=== PATIENT | male | born 1965 | race Caucasian/White ===

== ENCOUNTER → 2016-08-17 | Outpatient (CLI) | payer BC ==
[~2016-08-17] MED LIST: ASPI-558 PO; CHOL200047 PO; OMEP20CA10 PO; PRAV20TA48 PO
[2016-08-17 14:33] LABS: ALBUMIN/GLOBULIN RATIO 1.4 RATIO (1.1-2.2); ALKALINE PHOSPHATASE 85 U/L (38-126); ALT (SGPT) 39 U/L (21-72); ANION GAP 7 MEQ/L (5-15); AST (SGOT) 43 U/L (17-59); BUN/CREATININE RATIO 15 RATIO (6-26); CALCIUM 9.3 MG/DL (8.4-10.2); CHLORIDE 106 MEQ/L (98-107); CO2 - CARBON DIOXIDE 30 MEQ/L (22-30); CREATININE 1.1 MG/DL (0.8-1.5); GLOMERULAR FILTRATION RATE 70; GLUCOSE 94 MG/DL (75-110); POTASSIUM 4.7 MEQ/L (3.6-5); SODIUM 143 MEQ/L (134-144); TOTAL PROTEIN 6.9 G/DL (6.3-8.2)
== END ==
LOC: LAB 14:08
PROVIDERS: ATTEND Internal Medicine Hematology & Oncology
DX: C18.7 Malignant neoplasm of sigmoid colon (principal); C78.7 Secondary malignant neoplasm of liver and intrahepatic bile duct; E87.5 Hyperkalemia
CPT/HCPCS: 36415; 80053

== ENCOUNTER 2016-09-04 07:19 | Day surgery (SDC) | payer BC ==
[~2016-09-04] VITALS: Ht 190.5 cm; Wt 96.7 kg
[~2016-09-04 07:19] MED LIST changes: +LIDOCAINE 1% (10mg/ml) 2ml SDV INJ ONE; +LR 1,000 ML IV SCH; +MULT-1274 PO
--- OUTSIDE RECORDS SUMMARY | 2016-09-04 07:23 | XMS REPORT | Continuity of Care Document ---
Author Author [facility] Organization [facility] Address Unknown Phone Unavailable Support Name Relationship Address Phone MATT JO MD Caregiver [address] [place] [address] MAUREEN OSORIO MD Caregiver [facility] [address] [place] [phone] JOJO NICHOLAS & JOHNATHAN Next Of Kin [address] [place], [place] [id number] Insurance Providers Payer Name Policy Number Subscriber Name Relationship [facility] [id number] Ruddy Nicholas 16 Self Advance Directives Directive Response Recorded Date/Time Advanced Directives Type None 11/22/13 12:31am Ordered Resuscitation Status Full Code 11/03/13 1:28pm Chief Complaint and Reason for Visit Chief Complaint ROBOTIC SIGMOID COLECTOMY Reason for Visit Carcinoma of sigmoid colon Hypercholesteremia Hypertension 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 Problems Medical Problems Problem Onset Date Status Hypercholesteremia Unknown Active Hypertension Unknown Active Entrapment of left ulnar nerve Unknown Active Median nerve entrapment Unknown Active Surgical Problems Problem Onset Date Recorded Date/Time Status Carcinoma of sigmoid colon Unknown 11/27/2013 11:34am Active Medications Medication Dose Route Sig Days/Qty Instructions Order Date Discontinued Date Status Lisinopril 10 Mg PO TWICE A DAY 11/03/13 Active Pravastatin Sodium 20 Mg PO BEDTIME 11/03/13 Active Aspirin 81 Mg PO DAILY 11/03/13 Active Prednisone 20 Mg PO GIVE WITH BREAKFAST 18 Qty Take 1 tab daily with breakfast starting 11/28/13. 11/27/13 Active Ibuprofen 800 Mg PO THREE TIMES DAILY WITH MEALS 14 Days 11/27/13 Active Social History Social History Problem Response Recorded Date/Time Smoking Status Never smoker 11/22/2013 12:32am Chewing Tobacco Status No 11/21/2013 8:57am Hx Substance Use No 11/21/2013 8:57am Hx Alcohol Use Y 6-PACK ON WEEKENDS 11/21/2013 8:57am Has the pt used tobacco in the last 12 months No 11/22/2013 12:32am Hospital Discharge Instructions Instructions: Care Instructions: Reason for Hospitalization: SIGMOID COLECTOMY I was in the hospital because (patient own words): REMOVE SOME COLON Discharge Diet: Regular diet as tolerated, avoid raw vegetables for 3 weeks Discharge Activity: - No lifting > 15 pounds for 4 weeks. - No driving until moving and reacting like normal. Follow Up Appointments: - Follow-up with Dr. Osorio on 12/08/13 at 11:00 AM for post-op check. Patient Instructions: - May take Tylenol in addition to Ibuprofen. Wound/Incision Care: - May shower. No tub baths or swimming for 2 weeks after surgery. - Leave steri-strips (tape) in place until they fall off. Notify Physician If: - Uncontrolled pain - Fever > 100.5 degrees - Redness around incision - Any concerns New Scripts Called to Pharmacy: PREDNISONE Condition at time of discharge: Good Care Plan Discharge Patient: Goal: Pain is contolled Patient Instructions: see patient instructions Understand discharge plan Patient Instructions: see patient instructions Plan of Care Discharge Date 11/27/13 2:04pm Disposition 01 DISCHARGED HOME, SELF-CARE Instructions/Education Provided Colectomy -- Laparoscopic Surgery Prescriptions See Medications Section Functional Status Query Response Date Recorded Physical Hygiene Self November 27, 2013 12:05pm Disabilities None November 27, 2013 12:05pm Devices Used None November 27, 2013 12:05pm Dressing Self November 27, 2013 12:05pm Ambulation Self November 27, 2013 12:05pm Diet Self November 27, 2013 12:05pm Mental Status Alert November 27, 2013 12:05pm Disabilities None November 27, 2013 12:05pm Devices Used None November 27, 2013 12:05pm Physical Hygiene Self November 27, 2013 12:05pm Dressing Self November 27, 2013 12:05pm Ambulation Self November 27, 2013 12:05pm Diet Self November 27, 2013 12:05pm Allergies, Adverse Reactions, Alerts Allergen Type Severity Reaction Status Last Updated No Known Drug Allergies Allergy Unknown Active 11/03/13 Immunizations Name Given Type Hx Influenza Vaccination Y AT LEAST 5 YRS AGO Historical Hx Pneumococcal Vaccination No Historical Hx Influenza Vaccination Y AT LEAST 5 YRS AGO Historical Vital Signs Acute Vital Signs Vital Response Date/Time Temperature (Fahrenheit) 96.5 deg F (96.8 - 99.1) Temperature (Calculated Celsius) 35.31537 degrees C (36.0 - 37.3) Temperature Source Oral Pulse Rate (adult) 81 bpm (60 - 100) Respiratory Rate 16 breaths/min (10 - 20) O2 Sat by Pulse Oximetry 95 % (90 - 100) Blood Pressure 143/88 mm Hg Blood Pressure Source Automatic Cuff Height 6 ft 4 in Weight 217 lb Body Mass Index 26.0 kg/m^2 Results Test Source Date Result Interp. Ref. Range Comments Alanine Aminotransferase (ALT/SGPT) November 13, 2013 4:59pm 31 U/L N 21-72 Albumin November 13, 2013 4:59pm 4.2 G/DL N 3.5-5.0 Albumin/Globulin Ratio November 13, 2013 4:59pm 1.6 RATIO N 1.1-2.2 Alkaline Phosphatase November 13, 2013 4:59pm 75 U/L N 38-126 Anion Gap November 25, 2013 4:35am 4 MEQ/L L 5-15 Aspartate Amino Transf (AST/SGOT) November 13, 2013 4:59pm 32 U/L N 17-59 BUN/Creatinine Ratio November 25, 2013 4:35am 15 RATIO N 6-26 Band Neutrophils # November 22, 2013 4:30am 1.4 T/MM3 - Band Neutrophils % November 22, 2013 4:30am 11.0 % H 0-6 Basophils # (Auto) November 25, 2013 4:35am 0.0 T/MM3 N 0-0.2 Basophils (%) (Auto) November 25, 2013 4:35am 0.1 % N 0-2 Blood Urea Nitrogen November 25, 2013 4:35am 12.0 MG/DL N 9-20 Calcium Level November 25, 2013 4:35am 8.4 MG/DL N 8.4-10.2 Calculated Osmolality November 25, 2013 4:35am 258 MOSM/KG L 261-280 Carbon Dioxide Level November 25, 2013 4:35am 32 MEQ/L H 22-30 Carcinoembryonic Antigen November 13, 2013 4:59pm 1.63 UG/L N 0-3.0 Chemistry Specimen Hemolysis November 25, 2013 4:35am < 15 0-25 0-25: No Hemolysis.26-70: Slight Hemolysis - can falsely elevate K and Urine Protein. 71-285: Moderate Hemolysis - can falsely elevate K, Troponin I, CA 19-9, PTH, CSF GLucose, and Urine Protein, and can falsely decrease Phenytoin. 286-999: Gross Hemolysis - can falsely elevate K, Troponin I, CA 19-9, PTH, CSF Glucose, and Urine Protine, and can falsely decrease Phenytoin. Recommend specimen recollection. Chloride Level November 25, 2013 4:35am 98 MEQ/L N 98-107 Creatinine November 25, 2013 4:35am 0.8 MG/DL DN 0.8-1.5 Eosinophils # (Auto) November 25, 2013 4:35am 0.1 T/MM3 N 0-0.5 Eosinophils (%) (Auto) November 25, 2013 4:35am 1.6 % N 0-4 Globulin November 13, 2013 4:59pm 2.7 G/DL N 2.4-3.6 Glomerular Filtration Rate Calc November 25, 2013 4:35am 102 - Glucose Level November 25, 2013 4:35am 102 MG/DL N 75-110 Hematocrit November 25, 2013 4:35am 37.9 % L 41-53 Hemoglobin November 25, 2013 4:35am 13.1 GM/DL L 13.5-17.5 Icterus Index November 25, 2013 4:35am < 2 0-7 Immature Granulocyte # (Auto) November 25, 2013 4:35am 0.01 T/MM3 N 0.00- 0.03 Immature Granulocyte % (Auto) November 25, 2013 4:35am 0.1 % N 0.0-0.5 Lab Scanned Report November 13, 2013 7:39pm LAB TEST FORM REQUEST [id number] - Lymphocytes # (Auto) November 25, 2013 4:35am 0.6 T/MM3 L 1-4.8 Lymphocytes # (Manual) November 22, 2013 4:30am 1.4 T/MM3 N 1-4.8 Lymphocytes % (Manual) November 22, 2013 4:30am 11.0 % L 23-45 Lymphocytes (%) (Auto) November 25, 2013 4:35am 8.7 % L 23-45 Mean Corpuscular Hemoglobin November 25, 2013 4:35am 30.0 UUG N 26-34 Mean Corpuscular Hemoglobin Concent November 25, 2013 4:35am 34.6 GM/DL N 31 -37 Mean Corpuscular Volume November 25, 2013 4:35am 86.7 UM3 N 80-100 Mean Platelet Volume November 25, 2013 4:35am 9.4 UM3 N 9.4-12.4 Monocytes # (Auto) November 25, 2013 4:35am 0.5 T/MM3 N 0-0.8 Monocytes # (Manual) November 22, 2013 4:30am 0.4 T/MM3 N 0-0.8 Monocytes % (Manual) November 22, 2013 4:30am 3.0 % N 0-9.0 Monocytes (%) (Auto) November 25, 2013 4:35am 7.3 % N 0-9.0 Neutrophils # (Auto) November 25, 2013 4:35am 5.6 T/MM3 N 1.8-7.7 Neutrophils # (Manual) November 22, 2013 4:30am 9.2 T/MM3 H 1.8-7.7 Neutrophils % (Manual) November 22, 2013 4:30am 75.0 % H 33-66 Neutrophils (%) (Auto) November 25, 2013 4:35am 82.2 % H 33-66 Platelet Count November 25, 2013 4:35am 224 T/MM3 N 130-400 Potassium Level November 25, 2013 4:35am 3.6 MEQ/L N 3.6-5 RDW Standard Deviation November 25, 2013 4:35am 38.3 FL N 36.9-50.2 Red Blood Count November 25, 2013 4:35am 4.37 M/MM3 L 4.50-5.90 Sodium Level November 25, 2013 4:35am 134 MEQ/L N 134-144 Total Bilirubin November 13, 2013 4:59pm 0.50 MG/DL N 0.20-1.30 Total Protein November 13, 2013 4:59pm 6.9 G/DL N 6.3-8.2 Turbidity November 25, 2013 4:35am < 20 0-20 White Blood Count November 25, 2013 4:35am 6.9 T/MM3 N 4.5-11.0 Procedures Procedure Status Date Provider(s) COLONOSCOPY AND BIOPSY completed 11/05/13 MATT JO MD Robot-assisted left colectomy completed 11/21/13 MAUREEN OSORIO MD Flexible sigmoidoscopy completed 11/21/13 MAUREEN OSORIO MD Encounters Encounter Location Date/Time Discharged Inpatient [facility] 11/21/13 8:25am Registered Clinic [facility] 11/14/13 11:34am Registered Clinic [facility] 11/13/13 4:54pm Recent Diagnosis Hypercholesteremia Hypertension 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
--- OUTSIDE RECORDS SUMMARY | 2016-09-04 07:23 | XMS REPORT | Continuity of Care Document ---
Author Author [facility] Organization [facility] Address Unknown Phone Unavailable Care Team Providers Care General Assembler Name Role Phone Anselmo De La Paz Primary Care Physician [phone] Source Comments Some departments are not documenting in the electronic medical record. If you do not see the information that you expected, contact Release of Information in the Health Information Management department at [phone] for further assistance in locating additional records.[facility] Active Allergies and Adverse Reactions No Known Allergies Current Medications Prescription Sig. Disp. Refills Start End Date Status Date aspirin EC 81 mg tablet Take 81 mg by mouth Active daily. cholecalciferol(+) Take 2,000 Units by mouth Active (VITAMIN D3) 2,000 unit daily. tablet meloxicam (MOBIC) 7.5 mg Take 7.5 mg by mouth Active tablet daily. omeprazole DR(+) Take 20 mg by mouth Active (PRILOSEC) 20 mg capsule daily. oxyCODONE (ROXICODONE) 5 Take 1-3 Tabs by mouth 60 Tab 0 09/25/19 Active mg tablet every 3 hours as needed 16 for Pain Earliest Fill Date: 09/25/15 polyethylene glycol 3350 Take 17 g by mouth daily. 238 g 3 09/25/19 Active (GLYCOLAX; MIRALAX) 17 16 gram/dose powder senna/docusate Take 2 Tabs by mouth 09/25/19 Active (SENOKOT-S) 8.6/50 mg twice daily. 16 tablet Active Problems Problem Noted Date S/P cholecystectomy 09/23/2015 Overview: 09/21/15: Cholecystectomy, liver wedge resection x 3 Vitamin D deficiency 09/22/2015 Hyperlipidemia 09/22/2015 Metastatic colorectal cancer (HCC) 09/21/2015 Social History Tobacco Use Types Packs/Day Years Used Date Never Smoker Smokeless Tobacco: Never Used Alcohol Use Drinks/Week oz/Week Comments Yes 2 Cans of 1.2 beer Last Filed Vital Signs Vital Sign Reading Time Taken Blood Pressure 136/86 10/06/2015 10:37 AM CDT Pulse 73 10/06/2015 10:37 AM CDT Temperature 36.6 C (97.8 F) 10/06/2015 10:37 AM CDT Respiratory Rate - - Height 1.905 m (6' 3") 10/06/2015 10:37 AM CDT Weight 100.426 kg (221 lb 6.4 10/06/2015 10:37 AM CDT oz) Body Mass Index 27.67 10/06/2015 10:37 AM CDT Oxygen Saturation 99% 10/06/2015 10:37 AM CDT Plan of Care Health Maintenance Due Date Last Done Comments Hepatitis C Screening 1965 Physical (Comprehensive) 1970 Exam Pertussis Vaccine 1974 Tetanus Vaccine 01/03/1980 Colorectal Cancer 2013 Screening Influenza Vaccine 02/02/2017 Results from Last 3 Months Not on file
--- OUTSIDE RECORDS SUMMARY | 2016-09-04 07:23 | XMS REPORT | Continuity of Care Document ---
Author Author [facility] Organization [facility] Address Unknown Phone Unavailable Support Name Relationship Address Phone MATT JO MD Caregiver [address] [place] [address] Unavailable DAVID NGO Caregiver [address] [place] [address] Unavailable JOJO NICHOLAS & JOHNATHAN Next Of Kin [address] [place], [place] [id number] Insurance Providers Guarantor Ruddy Nicholas Address [address] [place] [address] CP Email DENIED/NO TO PT PORTAL Payer [facility] Policy Number [id number] Subscriber's Name Ruddy Nicholas Relationship 18 Self Group Number [id number] Advance Directives Directive Response Recorded Date/Time Advanced Directives Type None 11/22/13 12:31am Ordered Resuscitation Status Full Code 11/03/13 1:28pm Problems Active Problems Medical Problem Onset Date Status Entrapment of left ulnar nerve Unknown Acute Hypercholesteremia Unknown Acute Hypertension Unknown Acute Median nerve entrapment Unknown Acute Surgical Problem Onset Date Status Carcinoma of sigmoid colon Unknown Acute Medications Current Home Medications Medication Dose Units Route Directions Days Qty Instructions Start Date Aspirin (Aspir 81) 81 Mg Tablet. 81 Mg Oral Daily 11/03/13 Cholecalciferol (Vitamin D3) (Vitamin D3) 2,000 Unit Capsule 1 Cap Oral Daily 07/14/14 Omeprazole 20 Mg Capsule. 20 Mg Oral Before Breakfast Take 1 capsule, by mouth, one time a day (before breakfast). 10/18/15 Pravastatin Sodium 20 Mg Tablet 20 Mg Oral Bedtime 11/03/13 Past Home Medications Medication Directions Ordered Status Ondansetron Hcl (Zofran) 4 Mg Tablet, 1 Tab Oral Every 6 Hours 09/01/15 Discontinued Social History Social History Problem Response Recorded Date/Time Onset Date Status Chewing Tobacco Status No 11/21/2013 8:57am Not Applicable Not Applicable Hx Substance Use No 10/18/2015 8:56am Not Applicable Not Applicable Hx Alcohol Use Y 2-3X WWEK 10/18/2015 8:56am Not Applicable Not Applicable Has the pt used tobacco in the last 12 months No 12/12/2015 10:35am Not Applicable Not Applicable Query Response Start Date Stop Date Smoking Status Never smoker Hospital Discharge Instructions Current inpatient/outpatient. Discharge instructions are currently unavailable. Plan of Care Current inpatient/outpatient. The plan of care is currently unavailable Functional Status No functional status results. Allergies, Adverse Reactions, Alerts Allergen Type Severity Reaction Status Last Updated No Known Drug Allergies Allergy Unknown Active 11/07/15 Immunizations Query Response on File Recorded Date/Time Hx Influenza Vaccination Y MAR 2015 12/12/15 10:35am Hx Pneumococcal Vaccination No 12/12/15 10:35am Hx Influenza Vaccination Y MAR 2015 12/12/15 10:35am Influenza Vaccine Hx MAR 2015 08/24/15 7:10am Vital Signs Acute Vital Signs Vital Response Date/Time Temperature (Fahrenheit) 97.4 deg F (96.8 - 99.1) 05/30/2016 4:00pm Temperature (Calculated Celsius) 36.61127 degrees C (36.0 - 37.3) 05/30/2016 4:00pm Pulse Rate (adult) 71 bpm (60 - 100) 05/30/2016 4:00pm Respiratory Rate 16 breaths/min (10 - 20) 05/30/2016 4:00pm O2 Sat by Pulse Oximetry 96 % (90 - 100) 05/30/2016 4:00pm Oxygen Delivery Method Room Air 05/30/2016 4:00pm Blood Pressure 145/77 mm Hg 05/30/2016 4:00pm Blood Pressure Source Automatic Cuff 05/30/2016 4:00pm Results Laboratory Results Test Name Result Units Flags Reference Collection Date/Time Result Date/ Time Comments White Blood Count 8.3 T/MM3 4.5-11.0 06/01/2016 5:09pm 06/01/2016 5: 17pm Red Blood Count 3.86 M/MM3 L 4.50-5.90 06/01/2016 5:09pm 06/01/2016 5: 17pm Hemoglobin 12.6 GM/DL L 13.5-17.5 06/01/2016 5:09pm 06/01/2016 5:17pm Hematocrit 37.3 % L 41-53 06/01/2016 5:09pm 06/01/2016 5:17pm Mean Corpuscular Volume 96.6 UM3 80-100 06/01/2016 5:09pm 06/01/2016 5: 17pm Mean Corpuscular Hemoglobin 32.6 UUG 26-34 06/01/2016 5:09pm 2015 5:17pm Mean Corpuscular Hemoglobin Concent 33.8 GM/DL 31-37 06/01/2016 5:09pm 06/01/2016 5:17pm RDW Standard Deviation 53.8 FL H 36.9-50.2 06/01/2016 5:09pm 06/01/2016 5:17pm Platelet Count 122 T/MM3 L 130-400 06/01/2016 5:09pm 06/01/2016 5:17pm Mean Platelet Volume 8.7 UM3 L 9.4-12.4 06/01/2016 5:09pm 06/01/2016 5: 17pm Neutrophils (%) (Auto) 71.4 % H 33-66 04/20/2016 7:18am 04/20/2016 7: 37am Lymphocytes (%) (Auto) 14.7 % L 23-45 04/20/2016 7:18am 04/20/2016 7: 37am Monocytes (%) (Auto) 6.0 % 0-9.0 04/20/2016 7:18am 04/20/2016 7:37am Eosinophils (%) (Auto) 0.8 % 0-4 04/20/2016 7:18am 04/20/2016 7:37am Basophils (%) (Auto) 0.6 % 0-2 04/20/2016 7:18am 04/20/2016 7:37am Immature Granulocyte % (Auto) 6.5 % H 0.0-0.5 04/20/2016 7:18am 2015 7:37am Absolute Neutrophils (auto) 9.1 T/MM3 H 1.8-7.7 04/20/2016 7:18am 2015 7:37am Absolute Lymphocytes (auto) 1.9 T/MM3 1-4.8 04/20/2016 7:18am 2015 7:37am Absolute Monocytes (auto) 0.8 T/MM3 0-0.8 04/20/2016 7:18am 04/20/2016 7:37am Absolute Eosinophils (auto) 0.1 T/MM3 0-0.5 04/20/2016 7:18am 2015 7:37am Absolute Basophils (auto) 0.1 T/MM3 0-0.2 04/20/2016 7:18am 04/20/2016 7:37am Absolute Immature Granulocyte (auto 0.83 T/MM3 H 0.00-0.03 04/20/2016 7: 18am 04/20/2016 7:37am Neutrophils % (Manual) 42.0 % 33-66 06/01/2016 5:09pm 06/01/2016 5: 30pm Band Neutrophils % 13.0 % D H 0-6 06/01/2016 5:09pm 06/01/2016 5:30pm Lymphocytes % (Manual) 30.0 % 23-45 06/01/2016 5:09pm 06/01/2016 5: 30pm Monocytes % (Manual) 10.0 % H 0-9.0 06/01/2016 5:09pm 06/01/2016 5:30pm Eosinophils % (Manual) 2.0 % 0-4 06/01/2016 5:09pm 06/01/2016 5:30pm Basophils % (Manual) 1.0 % 0-2 03/10/2016 6:10am 03/10/2016 6:33am Metamyelocytes % 2.0 % H 0-0 06/01/2016 5:09pm 06/01/2016 5:30pm Myelocytes % 1.0 % H 0-0 06/01/2016 5:09pm 06/01/2016 5:30pm Reactive Lymphocytes % 5.0 % H 0-0 05/04/2016 3:14pm 05/04/2016 4:12pm Band Neutrophils # 1.1 T/MM3 06/01/2016 5:09pm 06/01/2016 5:30pm Absolute Neutrophils (Manual) 3.5 T/MM3 1.8-7.7 06/01/2016 5:09pm 06/01 5:30pm Lymphocytes # (Manual) 2.5 T/MM3 1-4.8 06/01/2016 5:09pm 06/01/2016 5: 30pm Monocytes # (Manual) 0.8 T/MM3 0-0.8 06/01/2016 5:09pm 06/01/2016 5: 30pm Eosinophils # (Manual) 0.2 T/MM3 0-0.5 06/01/2016 5:09pm 06/01/2016 5: 30pm Basophils # (Manual) 0.0 T/MM3 0-0.2 03/10/2016 6:10am 03/10/2016 6: 33am Metamyelocytes # 0.2 T/MM3 06/01/2016 5:09pm 06/01/2016 5:30pm Myelocytes # 0.1 T/MM3 06/01/2016 5:09pm 06/01/2016 5:30pm Reactive Lymphocytes # 0.4 T/MM3 H 0-0 05/04/2016 3:14pm 05/04/2016 4: 12pm Hyposegmented Neutrophils 1+ 05/25/2016 5:31pm 05/25/2016 6:27pm Nucleated Red Blood Cells 1 01/12/2016 5:07pm 01/12/2016 5:47pm Red Cell Morphology Comment ABNORMAL 06/01/2016 5:09pm 06/01/2016 5 :30pm Anisocytosis 1+ 06/01/2016 5:09pm 06/01/2016 5:30pm Icterus Index < 2 0-7 06/01/2016 5:09pm 06/01/2016 5:22pm Chemistry Specimen Hemolysis < 15 0-25 06/01/2016 5:09pm 06/01/2016 5 :22pm 0-25: Specimen Exhibited No Hemolysis. Turbidity < 20 0-20 06/01/2016 5:09pm 06/01/2016 5:22pm Sodium Level 143 MEQ/L 134-144 06/01/2016 5:09pm 06/01/2016 5:22pm Potassium Level 4.5 MEQ/L 3.6-5 06/01/2016 5:09pm 06/01/2016 5:22pm Chloride Level 104 MEQ/L 98-107 06/01/2016 5:09pm 06/01/2016 5:22pm Carbon Dioxide Level 31 MEQ/L H 22-30 06/01/2016 5:09pm 06/01/2016 5: 22pm Anion Gap 8 MEQ/L 5-15 06/01/2016 5:09pm 06/01/2016 5:22pm Blood Urea Nitrogen 15.0 MG/DL 9-20 06/01/2016 5:09pm 06/01/2016 5: 22pm Creatinine 0.8 MG/DL 0.8-1.5 06/01/2016 5:0906/01/2016 5:22pm BUN/Creatinine Ratio 19 RATIO 6-26 06/01/2016 5:0906/01/2016 5:22pm Glomerular Filtration Rate Calc 101 06/01/2016 5:06/01/2016 5: 22pm Glucose Level 94 MG/DL 75-110 06/01/2016 5:0906/01/2016 5:22pm Calculated Osmolality 276 MOSM/KG 261-280 06/01/2016 5:06/01/2016 5:22pm Calcium Level 9.5 MG/DL 8.4-10.2 06/01/2016 5:0906/01/2016 5:22pm Total Bilirubin 0.50 MG/DL 0.20-1.30 06/01/2016 5:06/01/2016 5: 22pm Unconjugated Bilirubin 0.40 MG/DL 0.00-1.10 12/27/2015 4:02pm 2015 4:16pm Conjugated Bilirubin 0.00 MG/DL 0.00-0.30 12/27/2015 4:02pm 12/27/2015 4:16pm Alkaline Phosphatase 158 U/L H 38-126 06/01/2016 5:06/01/2016 5: 22pm Total Protein 6.6 G/DL 6.3-8.2 06/01/2016 5:06/01/2016 5:22pm Albumin 3.8 G/DL 3.5-5.0 06/01/2016 5:06/01/2016 5:22pm Globulin 2.8 G/DL 2.4-3.6 06/01/2016 5:06/01/2016 5:22pm Albumin/Globulin Ratio 1.4 RATIO 1.1-2.2 06/01/2016 5:09pm 06/01/2016 5 :22pm Aspartate Amino Transf (AST/SGOT) 40 U/L 17-59 06/01/2016 5:09pm 2015 5:22pm Alanine Aminotransferase (ALT/SGPT) 44 U/L 21-72 06/01/2016 5:09pm 5:22pm Lactate Dehydrogenase 680 U/L H 313-618 06/01/2016 5:09pm 06/01/2016 5: 22pm Magnesium Level 1.8 MG/DL 1.6-2.3 06/01/2016 5:09pm 06/01/2016 5:22pm Carcinoembryonic Antigen 3.64 UG/L H 0-3.0 05/18/2016 5:36pm 05/18/2016 6:23pm Name: RUDDY NICHOLAS Unit #: [id number] : 1965 Sex: M Admit Date: Loc / Svc: FRANCISCO Discharge Date: DIAGNOSTIC IMAGING REPORT Report #: [id number] [facility] LEAH Benítez Indication: ITS.REASON: C18.7 COLON CA; 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 Coronal and sagittal two-dimensional reformats. Contrast: Omnipaque 300 100 mL Findings: Chest: The lungs are clear without definite suspicious pulmonary mass lesion or adenopathy. No definite pleural effusion. The overall heart size is normal. There is moderate degenerative disc disease of the thoracic spine. No definite skeletal metastasis. The thyroid gland is homogeneous. There is a right-sided IJ port in place. Abdomen: There is a persistent but decreased hypodense lesion along the posterior superior lateral margin of the liver that is measuring 1.8 cm on today's exam in maximal diameter. The previously identified lesion on the surface of the liver posteriorly is no longer detectable as a discrete mass, with only a slight liver surface remaining contour deformity. The other lesions where there was resection of the hepatic metastasis have become less conspicuous. There is no definite new hepatic mass identified from prior study. The spleen is homogeneous in enhancement. The pancreas is uniform in contour and homogeneous in enhancement. The adrenal glands are normal. There are some persistent renal cortical cysts that are unchanged. No retroperitoneal or mesenteric adenopathy. Pelvis: There is a anastomosis in the midline of the pelvis that appears patent. There is moderate stool in the rectal vault distal to the anastomosis. The urinary bladder is not distended. The prostate gland is not significantly enlarged. A normal appendix is not identified with certainty. There is no significant distal colonic diverticulosis. No definite bony destructive process. Impression: Resolving postsurgical changes from resection of hepatic metastases with persistent but improved hypodense lesion along the posterior superior lateral right dome of the liver. No definite detectable mass lesion along the posterior inferior right lobe of the liver. No definite new suspicious hepatic lesion. No pulmonary or other metastasis seen. . Procedures Procedure Status Date Provider(s) MRI NECK SPINE W/O & W/DYE Completed 03/10/16 GADAVIST 10ML SDV - Contrast,Gadavist 10ml Completed 03/10/16 CT THORAX W/DYE Completed 05/02/16 CT ABD & PELV W/CONTRAST Completed 05/02/16 647549"INJECTION, HEPARIN SODIUM, (HEPARIN LOCK FLUSH), PER Completed [id number]"INFUSION, NORMAL SALINE SOLUTION , 250 CC" Completed 05/02/16 [id number]"LOW OSMOLAR CONTRAST MATERIAL, 300-399 MG/ML IODINE C Completed Encounters Encounter Location Arrival/Admit Date Discharge/Depart Date Attending Provider Registered [facility] 06/01/16 5:03pm DAVID NGO Discharged [facility] 05/30/16 5:00pm 06/03/16 11:27pm DAVID NGO Registered [facility] 05/02/16 7:04am DAVID NGO [facility] 03/10/16 6:13am DAVID NGO
--- OUTSIDE RECORDS SUMMARY | 2016-09-04 07:23 | XMS REPORT | Continuity of Care Document ---
Author Author [facility] Organization [facility] Address Unknown Phone Unavailable Support Name Relationship Address Phone MATT JO MD Caregiver [address] [place] [address] Unavailable DAVID NGO Caregiver [address] [place] [address] Unavailable OJJO NICHOLAS & JOHNATHAN Next Of Kin [address] [place], [place] [id number] Insurance Providers Guarantor Ruddy Nicholas Address [address] [place] [address] CP Email DENIED 16 Payer [facility] Policy Number [id number] Subscriber's Name Ruddy Nicholas Relationship 18 Self Group Number [id number] Advance Directives Directive Response Recorded Date/Time Advanced [...] Smoking Status Never smoker Hospital Discharge Instructions No hospital discharge instructions. Plan of Care Prescriptions See Medication Section Functional Status No functional status results. Allergies, [...] - 99.1) 05/30/2016 4:00pm Temperature (Calculated Celsius) 36.56940 degrees C (36.0 - 37.3) 05/30/2016 4:00pm [...] Reference Collection Date/Time Result Date/ Time Comments Neutrophils % (Manual) 42.0 % 33-66 06/01/2016 [...] :30pm Anisocytosis 1+ 06/01/2016 5:09pm 06/01/2016 5:30pm Unconjugated Bilirubin 0.40 MG/DL 0.00-1.10 12/27/2015 4:02pm 2015 4:16pm Conjugated Bilirubin 0.00 MG/DL 0.00-0.30 12/27/2015 4:02pm 12/27/2015 4:16pm White Blood Count 3.9 T/MM3 L 4.5-11.0 06/14/2016 9:06/14/2016 9: 28am Red Blood Count 4.42 M/MM3 L 4.50-5.90 06/14/2016 9:06/14/2016 9: 28am Hemoglobin 14.3 GM/DL 13.5-17.5 06/14/2016 9:06/14/2016 9:28am Hematocrit 42.6 % 41-53 06/14/2016 9:06/14/2016 9:28am Mean Corpuscular Volume 96.4 UM3 80-100 06/14/2016 9:06/14/2016 9: 28am Mean Corpuscular Hemoglobin 32.4 UUG 26-34 06/14/2016 9:2016 9:28am Mean Corpuscular Hemoglobin Concent 33.6 GM/DL 31-37 06/14/2016 9:06/14/2016 9:28am RDW Standard Deviation 50.0 FL 36.9-50.2 06/14/2016 9:06/14/2016 9 :28am Platelet Count 291 T/MM3 D 130-400 06/14/2016 9:06/14/2016 9:28am Mean Platelet Volume 8.6 UM3 L 9.4-12.4 06/14/2016 9:06/14/2016 9: 28am Neutrophils (%) (Auto) 60.9 % 33-66 06/14/2016 9:06/14/2016 9: 28am Lymphocytes (%) (Auto) 26.4 % 23-45 06/14/2016 9:06/14/2016 9: 28am Monocytes (%) (Auto) 10.9 % H 0-9.0 06/14/2016 9:06/14/2016 9:28am Eosinophils (%) (Auto) 1.0 % 0-4 06/14/2016 9:06/14/2016 9:28am Basophils (%) (Auto) 0.8 % 0-2 06/14/2016 9:06/14/2016 9:28am Immature Granulocyte % (Auto) 0.0 % 0.0-0.5 06/14/2016 9:2016 9:28am Absolute Neutrophils (auto) 2.4 T/MM3 1.8-7.7 06/14/2016 9:2016 9:28am Absolute Lymphocytes (auto) 1.0 T/MM3 1-4.8 06/14/2016 9:2016 9:28am Absolute Monocytes (auto) 0.4 T/MM3 0-0.8 06/14/2016 9:06/14/2016 9:28am Absolute Eosinophils (auto) 0.0 T/MM3 0-0.5 06/14/2016 9:2016 9:28am Absolute Basophils (auto) 0.0 T/MM3 0-0.2 06/14/2016 9:06/14/2016 9:28am Absolute Immature Granulocyte (auto 0.00 T/MM3 0.00-0.03 06/14/2016 9: 06/14/2016 9:28am Icterus Index < 2 0-7 06/14/2016 9:06/14/2016 9:19am Chemistry Specimen Hemolysis < 15 0-25 06/14/2016 9:06/14/2016 9 :19am 0-25: Specimen Exhibited No Hemolysis. Turbidity < 20 0-20 06/14/2016 9:06/14/2016 9:19am Sodium Level 141 MEQ/L 134-144 06/14/2016 9:06/14/2016 9:19am Potassium Level 5.5 MEQ/L H 3.6-5 06/14/2016 9:06/14/2016 9:19am Chloride Level 104 MEQ/L 98-107 06/14/2016 9:06/14/2016 9:19am Carbon Dioxide Level 29 MEQ/L 22-30 06/14/2016 9:06/14/2016 9: 19am Anion Gap 8 MEQ/L 5-15 06/14/2016 9:06/14/2016 9:19am Blood Urea Nitrogen 13.0 MG/DL 9-20 06/14/2016 9:06/14/2016 9: 19am Creatinine 0.8 MG/DL 0.8-1.5 06/14/2016 9:06/14/2016 9:19am BUN/Creatinine Ratio 16 RATIO 6-26 06/14/2016 9:06/14/2016 9:19am Glomerular Filtration Rate Calc 101 06/14/2016 9:06/14/2016 9: 19am Glucose Level 103 MG/DL 75-110 06/14/2016 9:06/14/2016 9:19am Calculated Osmolality 271 MOSM/KG 261-280 06/14/2016 9:06/14/2016 9:19am Calcium Level 9.4 MG/DL 8.4-10.2 06/14/2016 9:06/14/2016 9:19am Total Bilirubin 0.90 MG/DL 0.20-1.30 06/14/2016 9:06/14/2016 9: 19am Alkaline Phosphatase 87 U/L 38-126 06/14/2016 9:06/14/2016 9:19am Total Protein 7.1 G/DL 6.3-8.2 06/14/2016 9:06/14/2016 9:19am Albumin 4.4 G/DL 3.5-5.0 06/14/2016 9:06/14/2016 9:19am Globulin 2.7 G/DL 2.4-3.6 06/14/2016 9:06/14/2016 9:19am Albumin/Globulin Ratio 1.6 RATIO 1.1-2.2 06/14/2016 9:06/14/2016 9 :19am Aspartate Amino Transf (AST/SGOT) 42 U/L 17-59 06/14/2016 9:2016 9:19am Alanine Aminotransferase (ALT/SGPT) 42 U/L 21-72 06/14/2016 9:04/2017 9:19am Lactate Dehydrogenase 541 U/L 313-618 06/14/2016 9:06am 06/14/2016 9: 19am Magnesium Level 2.2 MG/DL 1.6-2.3 06/14/2016 9:06am 06/14/2016 9:19am Carcinoembryonic Antigen 3.25 UG/L H 0-3.0 06/14/2016 9:06am 06/14/2016 9:50am Procedures Procedure Status Date Provider(s) [id number]"INJECTION, HEPARIN SODIUM, (HEPARIN LOCK FLUSH), PER Completed Ther/proph/diag inj sc/im Completed 12/12/15 TBO-FILGRASTIM 300 MCG INJECTION Completed 12/12/15 Ther/proph/diag inj sc/im Completed 12/12/15 TBO-FILGRASTIM 300 MCG INJECTION Completed 12/12/15 Ther/proph/diag inj sc/im Completed 12/12/15 TBO-FILGRASTIM 300 MCG INJECTION Completed 12/12/15 Ther/proph/diag inj sc/im Completed 12/12/15 TBO-FILGRASTIM 300 MCG INJECTION Completed 12/12/15 Ther/proph/diag inj sc/im Completed 12/12/15 TBO-FILGRASTIM 300 MCG INJECTION Completed 12/12/15 Ther/proph/diag inj sc/im Completed 12/12/15 TBO-FILGRASTIM 300 MCG INJECTION Completed 12/12/15 Ther/proph/diag inj sc/im Completed 12/12/15 TBO-FILGRASTIM 300 MCG INJECTION Completed 12/12/15 TBO-FILGRASTIM 300 MCG INJECTION Completed 12/12/15 Ther/proph/diag inj sc/im Completed 12/12/15 TBO-FILGRASTIM 300 MCG INJECTION Completed 12/12/15 Ther/proph/diag inj sc/im Completed 12/12/15 TBO-FILGRASTIM 300 MCG INJECTION Completed 12/12/15 Ther/proph/diag inj sc/im Completed 12/12/15 TBO-FILGRASTIM 300 MCG INJECTION Completed 12/12/15 Ther/proph/diag inj sc/im Completed 12/12/15 TBO-FILGRASTIM 300 MCG INJECTION Completed 12/12/15 [id number]"INJECTION, HEPARIN SODIUM, (HEPARIN LOCK FLUSH), PER Completed Ther/proph/diag inj sc/im Completed 12/12/15 TBO-FILGRASTIM 300 MCG INJECTION Completed 12/12/15 Ther/proph/diag inj sc/im Completed 12/12/15 TBO-FILGRASTIM 300 MCG INJECTION Completed 12/12/15 Ther/proph/diag inj sc/im Completed 12/12/15 TBO-FILGRASTIM 300 MCG INJECTION Completed 12/12/15 Ther/proph/diag inj sc/im Completed 12/12/15 TBO-FILGRASTIM 300 MCG INJECTION Completed 12/12/15 Ther/proph/diag inj sc/im Completed 12/12/15 TBO-FILGRASTIM 300 MCG INJECTION Completed 12/12/15 Ther/proph/diag inj sc/im Completed 12/12/15 TBO-FILGRASTIM 300 MCG INJECTION Completed 12/12/15 Ther/proph/diag inj sc/im Completed 12/12/15 TBO-FILGRASTIM 300 MCG INJECTION Completed 12/12/15 Ther/proph/diag inj sc/im Completed 12/12/15 TBO-FILGRASTIM 300 MCG INJECTION Completed 12/12/15 Ther/proph/diag inj sc/im Completed 12/12/15 TBO-FILGRASTIM 300 MCG INJECTION Completed 12/12/15 Ther/proph/diag inj sc/im Completed 12/12/15 TBO-FILGRASTIM 300 MCG INJECTION Completed 12/12/15 Ther/proph/diag inj sc/im Completed 12/12/15 TBO-FILGRASTIM 300 MCG INJECTION Completed 12/12/15 Ther/proph/diag inj sc/im Completed 12/12/15 TBO-FILGRASTIM 300 MCG INJECTION Completed 12/12/15 Office/outpatient visit est Completed 12/12/15 [id number]"INJECTION, HEPARIN SODIUM, (HEPARIN LOCK FLUSH), PER Completed Ther/proph/diag inj sc/im Completed 12/12/15 TBO-FILGRASTIM 300 MCG INJECTION Completed 12/12/15 Ther/proph/diag inj sc/im Completed 12/12/15 TBO-FILGRASTIM 300 MCG INJECTION Completed 12/12/15 Ther/proph/diag inj sc/im Completed 12/12/15 TBO-FILGRASTIM 300 MCG INJECTION Completed 12/12/15 Ther/proph/diag inj sc/im Completed 12/12/15 TBO-FILGRASTIM 300 MCG INJECTION Completed 12/12/15 Ther/proph/diag inj sc/im Completed 12/12/15 TBO-FILGRASTIM 300 MCG INJECTION Completed 12/12/15 Ther/proph/diag inj sc/im Completed 12/12/15 TBO-FILGRASTIM 300 MCG INJECTION Completed 12/12/15 Ther/proph/diag inj sc/im Completed 12/12/15 TBO-FILGRASTIM 300 MCG INJECTION Completed 12/12/15 Office/outpatient visit est Completed 12/12/15 [id number]"INJECTION, HEPARIN SODIUM, (HEPARIN LOCK FLUSH), PER Completed Ther/proph/diag inj sc/im Completed 12/12/15 TBO-FILGRASTIM 300 MCG INJECTION Completed 12/12/15 Ther/proph/diag inj sc/im Completed 12/12/15 TBO-FILGRASTIM 300 MCG INJECTION Completed 12/12/15 Ther/proph/diag inj sc/im Completed 12/12/15 TBO-FILGRASTIM 300 MCG INJECTION Completed 12/12/15 Ther/proph/diag inj sc/im Completed 12/12/15 TBO-FILGRASTIM 300 MCG INJECTION Completed 12/12/15 Ther/proph/diag inj sc/im Completed 12/12/15 TBO-FILGRASTIM 300 MCG INJECTION Completed 12/12/15 Ther/proph/diag inj sc/im Completed 12/12/15 TBO-FILGRASTIM 300 MCG INJECTION Completed 12/12/15 [id number]"INJECTION, HEPARIN SODIUM, (HEPARIN LOCK FLUSH), PER Completed Ther/proph/diag inj sc/im Completed 12/12/15 TBO-FILGRASTIM 300 MCG INJECTION Completed 12/12/15 Ther/proph/diag inj sc/im Completed 12/12/15 TBO-FILGRASTIM 300 MCG INJECTION Completed 12/12/15 Ther/proph/diag inj sc/im Completed 12/12/15 TBO-FILGRASTIM 300 MCG INJECTION Completed 12/12/15 Ther/proph/diag inj sc/im Completed 12/12/15 TBO-FILGRASTIM 300 MCG INJECTION Completed 12/12/15 Ther/proph/diag inj sc/im Completed 12/12/15 TBO-FILGRASTIM 300 MCG INJECTION Completed 12/12/15 Ther/proph/diag inj sc/im Completed 12/12/15 TBO-FILGRASTIM 300 MCG INJECTION Completed 12/12/15 Ther/proph/diag inj sc/im Completed 12/12/15 TBO-FILGRASTIM 300 MCG INJECTION Completed 12/12/15 Ther/proph/diag inj sc/im Completed 12/12/15 TBO-FILGRASTIM 300 MCG INJECTION Completed 12/12/15 Ther/proph/diag inj sc/im Completed 12/12/15 TBO-FILGRASTIM 300 MCG INJECTION Completed 12/12/15 [id number]"INJECTION, HEPARIN SODIUM, (HEPARIN LOCK FLUSH), PER Completed Ther/proph/diag inj sc/im Completed 12/12/15 TBO-FILGRASTIM 300 MCG INJECTION Completed 12/12/15 Ther/proph/diag inj sc/im Completed 12/12/15 TBO-FILGRASTIM 300 MCG INJECTION Completed 12/12/15 Ther/proph/diag inj sc/im Completed 12/12/15 TBO-FILGRASTIM 300 MCG INJECTION Completed 12/12/15 Ther/proph/diag inj sc/im Completed 12/12/15 TBO-FILGRASTIM 300 MCG INJECTION Completed 12/12/15 Ther/proph/diag inj sc/im Completed 12/12/15 TBO-FILGRASTIM 300 MCG INJECTION Completed 12/12/15 Ther/proph/diag inj sc/im Completed 12/12/15 TBO-FILGRASTIM 300 MCG INJECTION Completed 12/12/15 Ther/proph/diag inj sc/im Completed 12/12/15 TBO-FILGRASTIM 300 MCG INJECTION Completed 12/12/15 Ther/proph/diag inj sc/im Completed 12/12/15 TBO-FILGRASTIM 300 MCG INJECTION Completed 12/12/15 Ther/proph/diag inj sc/im Completed 12/12/15 TBO-FILGRASTIM 300 MCG INJECTION Completed 12/12/15 [id number]"INJECTION, HEPARIN SODIUM, (HEPARIN LOCK FLUSH), PER Completed Ther/proph/diag inj sc/im Completed 12/12/15 TBO-FILGRASTIM 300 MCG INJECTION Completed 12/12/15 Ther/proph/diag inj sc/im Completed 12/12/15 TBO-FILGRASTIM 300 MCG INJECTION Completed 12/12/15 Ther/proph/diag inj sc/im Completed 12/12/15 TBO-FILGRASTIM 300 MCG INJECTION Completed 12/12/15 Ther/proph/diag inj sc/im Completed 12/12/15 TBO-FILGRASTIM 300 MCG INJECTION Completed 12/12/15 Ther/proph/diag inj sc/im Completed 12/12/15 TBO-FILGRASTIM 300 MCG INJECTION Completed 12/12/15 Ther/proph/diag inj sc/im Completed 12/12/15 TBO-FILGRASTIM 300 MCG INJECTION Completed 12/12/15 Ther/proph/diag inj sc/im Completed 12/12/15 TBO-FILGRASTIM 300 MCG INJECTION Completed 12/12/15 Ther/proph/diag inj sc/im Completed 12/12/15 TBO-FILGRASTIM 300 MCG INJECTION Completed 12/12/15 Ther/proph/diag inj sc/im Completed 12/12/15 TBO-FILGRASTIM 300 MCG INJECTION Completed 12/12/15 [id number]"INJECTION, HEPARIN SODIUM, (HEPARIN LOCK FLUSH), PER Completed Ther/proph/diag inj sc/im Completed 12/12/15 TBO-FILGRASTIM 300 MCG INJECTION Completed 12/12/15 Ther/proph/diag inj sc/im Completed 12/12/15 TBO-FILGRASTIM 300 MCG INJECTION Completed 12/12/15 Ther/proph/diag inj sc/im Completed 12/12/15 TBO-FILGRASTIM 300 MCG INJECTION Completed 12/12/15 TBO-FILGRASTIM 300 MCG INJECTION Completed 12/12/15 Ther/proph/diag inj sc/im Completed 12/12/15 TBO-FILGRASTIM 300 MCG INJECTION Completed 12/12/15 Ther/proph/diag inj sc/im Completed 12/12/15 TBO-FILGRASTIM 300 MCG INJECTION Completed 12/12/15 Ther/proph/diag inj sc/im Completed 12/12/15 TBO-FILGRASTIM 300 MCG INJECTION Completed 12/12/15 Ther/proph/diag inj sc/im Completed 12/12/15 TBO-FILGRASTIM 300 MCG INJECTION Completed 12/12/15 Ther/proph/diag inj sc/im Completed 12/12/15 TBO-FILGRASTIM 300 MCG INJECTION Completed 12/12/15 Ther/proph/diag inj sc/im Completed 12/12/15 TBO-FILGRASTIM 300 MCG INJECTION Completed 12/12/15 Routine venipuncture Completed 12/27/15 Hepatic function panel Completed 12/27/15 Routine venipuncture Completed 12/27/15 Comprehen metabolic panel Completed 12/27/15 Lactate (ld) (ldh) enzyme Completed 12/27/15 Assay of magnesium Completed 12/27/15 Complete cbc w/auto diff wbc Completed 12/27/15 TBO-FILGRASTIM 300 MCG INJECTION Completed 12/27/15 Routine venipuncture Completed 12/27/15 Comprehen metabolic panel Completed 12/27/15 Lactate (ld) (ldh) enzyme Completed 12/27/15 Assay of magnesium Completed 12/27/15 Bl smear w/diff wbc count Completed 12/27/15 Complete cbc automated Completed 12/27/15 TBO-FILGRASTIM 300 MCG INJECTION Completed 12/27/15 TBO-FILGRASTIM 300 MCG INJECTION Completed 12/27/15 TBO-FILGRASTIM 300 MCG INJECTION Completed 12/27/15 TBO-FILGRASTIM 300 MCG INJECTION Completed 12/27/15 Comprehen metabolic panel Completed 12/27/15 Carcinoembryonic antigen Completed 12/27/15 Lactate (ld) (ldh) enzyme Completed 12/27/15 Assay of magnesium Completed 12/27/15 Bl smear w/diff wbc count Completed 12/27/15 Complete cbc automated Completed 12/27/15 Routine venipuncture Completed 12/27/15 Comprehen metabolic panel Completed 12/27/15 Lactate (ld) (ldh) enzyme Completed 12/27/15 Assay of magnesium Completed 12/27/15 Bl smear w/diff wbc count Completed 12/27/15 Complete cbc automated Completed 12/27/15 Routine venipuncture Completed 12/27/15 Comprehen metabolic panel Completed 12/27/15 Carcinoembryonic antigen Completed 12/27/15 Lactate (ld) (ldh) enzyme Completed 12/27/15 Assay of magnesium Completed 12/27/15 Complete cbc w/auto diff wbc Completed 12/27/15 Routine venipuncture Completed 12/27/15 Comprehen metabolic panel Completed 12/27/15 Lactate (ld) (ldh) enzyme Completed 12/27/15 Assay of magnesium Completed 12/27/15 Complete cbc w/auto diff wbc Completed 12/27/15 Routine venipuncture Completed 12/27/15 Comprehen metabolic panel Completed 12/27/15 Lactate (ld) (ldh) enzyme Completed 12/27/15 Assay of magnesium Completed 12/27/15 Complete cbc w/auto diff wbc Completed 12/27/15 Comprehen metabolic panel Completed 12/27/15 Carcinoembryonic antigen Completed 12/27/15 Lactate (ld) (ldh) enzyme Completed 12/27/15 Assay of magnesium Completed 12/27/15 Complete cbc w/auto diff wbc Completed 12/27/15 Routine venipuncture Completed 12/27/15 Comprehen metabolic panel Completed 12/27/15 Carcinoembryonic antigen Completed 12/27/15 Lactate (ld) (ldh) enzyme Completed 12/27/15 Assay of magnesium Completed 12/27/15 Complete cbc w/auto diff wbc Completed 12/27/15 Routine venipuncture Completed 12/27/15 Comprehen metabolic panel Completed 12/27/15 Lactate (ld) (ldh) enzyme Completed 12/27/15 Assay of magnesium Completed 12/27/15 Complete cbc w/auto diff wbc Completed 12/27/15 Routine venipuncture Completed 12/27/15 Comprehen metabolic panel Completed 12/27/15 Lactate (ld) (ldh) enzyme Completed 12/27/15 Assay of magnesium Completed 12/27/15 Complete cbc w/auto diff wbc Completed 12/27/15 Routine venipuncture Completed 12/27/15 Metabolic panel total ca Completed 12/27/15 Complete cbc w/auto diff wbc Completed 12/27/15 Routine venipuncture Completed 12/27/15 Comprehen metabolic panel Completed 12/27/15 Lactate (ld) (ldh) enzyme Completed 12/27/15 Assay of magnesium Completed 12/27/15 Complete cbc w/auto diff wbc Completed 12/27/15 Routine venipuncture Completed 12/27/15 Comprehen metabolic panel Completed 12/27/15 Lactate (ld) (ldh) enzyme Completed 12/27/15 Assay of magnesium Completed 12/27/15 Complete cbc w/auto diff wbc Completed 12/27/15 Routine venipuncture Completed 12/27/15 Complete cbc w/auto diff wbc Completed 12/27/15 Routine venipuncture Completed 12/27/15 Comprehen metabolic panel Completed 12/27/15 Carcinoembryonic antigen Completed 12/27/15 Lactate (ld) (ldh) enzyme Completed 12/27/15 Assay of magnesium Completed 12/27/15 Complete cbc w/auto diff wbc Completed 12/27/15 Routine venipuncture Completed 12/27/15 Comprehen metabolic panel Completed 12/27/15 Lactate (ld) (ldh) enzyme Completed 12/27/15 Assay of magnesium Completed 12/27/15 Complete cbc w/auto diff wbc Completed 12/27/15 Routine venipuncture Completed 12/27/15 Comprehen metabolic panel Completed 12/27/15 Lactate (ld) (ldh) enzyme Completed 12/27/15 Assay of magnesium Completed 12/27/15 Complete cbc w/auto diff wbc Completed 12/27/15 Routine venipuncture Completed 12/27/15 Comprehen metabolic panel Completed 12/27/15 Carcinoembryonic antigen Completed 12/27/15 Lactate (ld) (ldh) enzyme Completed 12/27/15 Assay of magnesium Completed 12/27/15 Complete cbc w/auto diff wbc Completed 12/27/15 Routine venipuncture Completed 12/27/15 Comprehen metabolic panel Completed 12/27/15 Lactate (ld) (ldh) enzyme Completed 12/27/15 Assay of magnesium Completed 12/27/15 Complete cbc w/auto diff wbc Completed 12/27/15 Routine venipuncture Completed 12/27/15 Comprehen metabolic panel Completed 12/27/15 Lactate (ld) (ldh) enzyme Completed 12/27/15 Assay of magnesium Completed 12/27/15 Complete cbc w/auto diff wbc Completed 12/27/15 Ct thorax w/dye Completed 05/02/16 Ct abd & pelv w/contrast Completed 05/02/16 [id number]"INJECTION, HEPARIN SODIUM, (HEPARIN LOCK FLUSH), PER Completed [id number]"INFUSION, NORMAL SALINE SOLUTION , 250 CC" Completed 05/02/16 [id number]"LOW OSMOLAR CONTRAST MATERIAL, 300-399 MG/ML IODINE C Completed Pet image w/ct skull-thigh Completed 06/14/16"FLUORODEOXYGLUCOSE F-18 FDG, DIAGNOSTIC, PER STUDY DO Completed Encounters Encounter Location Arrival/Admit Date Discharge/Depart Date Attending Provider Discharged [facility] 06/14/16 7:15am 07/29/16 11:59pm DAVID NGO [facility] 06/14/16 6:57am DAVID NGO [facility] 05/02/16 7:04am DAVID NGO [facility] 12/27/15 3:47pm 06/03/16 11:53pm DAVID NGO [facility] 12/12/15 10:30am 06/03/16 11: 27pm DAVID NGO
--- OUTSIDE RECORDS SUMMARY | 2016-09-04 07:24 | XMS REPORT | Continuity of Care Document ---
Author Author [facility] Organization [facility] Address Unknown Phone Unavailable Support Name Relationship Address Phone MATT DE LA PAZ MD Caregiver [address] [place] [address] SILVINA MARTÍNEZ MD Caregiver [facility] [address] [place] [address] JOJO NICHOLAS & JOHNATHAN Next Of Kin [address] [place] [address] Insurance Providers Payer Name Policy Number Subscriber Name Relationship Rust [id number] Ruddy Nicholas 16 Self Advance Directives Directive Response Recorded Date/Time Advanced Directives Type None 11/22/13 12:31am Ordered Resuscitation Status Full Code 11/03/13 1:28pm Problems Medical Problems Problem Onset Date Status [...] daily with breakfast starting 11/28/13. 11/27/13 Active Social History Social History Problem Response Recorded Date/Time Smoking Status Never smoker 11/22/2013 12:32am Chewing Tobacco Status No 11/21/2013 8:57am Hx Substance Use No 01/20/2014 2:31pm Hx Alcohol Use Y 2-3X WWEK 01/20/2014 2:31pm Has the pt used tobacco in the last 12 months No 01/20/2014 2:31pm Hospital Discharge Instructions Instructions: Care Instructions: Reason [...] - Redness around incision - Any concerns Condition at time of discharge: Good Care Plan Discharge Patient: Goal: Pain is contolled Patient Instructions: see patient instructions see patient instructions peels excessively, notify your surgeon's office. 3.You may shower with the dressing in place, but do not submerge in water 4.Do not allow water to seep under the dressing, if it should seep under, remove the dressing and notify your surgeon. Notify Physician If: Call your Surgeon if you have: 1.Chest pain, difficulty breathing, fever>100.5 degrees, chills, heart rate >100, confusion, or persistent nausea/vomitting. 2.Severe pain, swelling, redness, or warmth in either of your legs. 3.During office hours, call [phone] 4. After hours, please call [facility] at [phone], and have the finisher operator page your Surgeon IN THE EVENT OF AN EMERGENCY, seek medical care at the nearest Emergency Room Condition at time of discharge: Good Care Plan Discharge Patient: Goal: Understand discharge plan Patient Instructions: see patient instructions see patient instructions Plan of Care Discharge Date 11/27/13 2:04pm Instructions/Education Provided Colectomy -- Laparoscopic Surgery Prescriptions See Medications Section Functional Status Query Response Date Recorded Physical Hygiene Self November 27, 2013 12:05pm Disabilities None November 27, 2013 12:05pm Ambulation Self November 27, 2013 12:05pm Mental Status Alert November 27, 2013 12:05pm Disabilities None November 27, 2013 12:05pm Physical Hygiene Self November 27, 2013 12:05pm Ambulation Self November 27, 2013 12:05pm Allergies, Adverse Reactions, Alerts Allergen Type Severity Reaction Status Last Updated No Known Drug Allergies Allergy Unknown Active 11/03/13 Immunizations Name Given Type Hx Influenza Vaccination Y AT LEAST 5 YRS AGO Historical Hx Pneumococcal Vaccination No Historical Hx Influenza Vaccination Y AT LEAST 5 YRS AGO Historical Vital Signs Acute Vital Signs Vital Response Date/Time Temperature (Fahrenheit) 97.5 deg F (96.8 - 99.1) Temperature (Calculated Celsius) 36.01625 degrees C (36.0 - 37.3) Temperature Source Temporal Pulse Rate (adult) 78 bpm (60 - 100) Respiratory Rate 16 breaths/min (10 - 20) O2 Sat by Pulse Oximetry 98 % (90 - 100) Oxygen Delivery Method Room Air Blood Pressure 133/84 mm Hg Blood Pressure Source Automatic Cuff Height 6 ft 3 in Weight 201 lb Body Mass Index 25.0 kg/m^2 Results Test Source Date Result Interp. Ref. Range Comments Alanine Aminotransferase (ALT/SGPT) December 18, 2013 9:04am 31 U/L N 21-72 Albumin December 18, 2013 9:04am 3.8 G/DL N 3.5-5.0 Albumin/Globulin Ratio December 18, 2013 9:04am 1.4 RATIO N 1.1-2.2 Alkaline Phosphatase December 18, 2013 9:04am 72 U/L N 38-126 Anion Gap December 18, 2013 9:04am 10 MEQ/L N 5-15 Aspartate Amino Transf (AST/SGOT) December 18, 2013 9:04am 24 U/L N 17-59 BUN/Creatinine Ratio December 18, 2013 9:04am 12 RATIO N 6-26 Band Neutrophils # November 22, 2013 4:30am 1.4 T/MM3 - Band Neutrophils % November 22, 2013 4:30am 11.0 % H 0-6 Basophils # (Auto) December 18, 2013 9:04am 0.0 T/MM3 N 0-0.2 Basophils (%) (Auto) December 18, 2013 9:04am 0.8 % N 0-2 Blood Urea Nitrogen December 18, 2013 9:04am 12.0 MG/DL N 9-20 Calcium Level December 18, 2013 9:04am 9.1 MG/DL N 8.4-10.2 Calculated Osmolality December 18, 2013 9:04am 275 MOSM/KG N 261-280 Carbon Dioxide Level December 18, 2013 9:04am 29 MEQ/L N 22-30 Carcinoembryonic Antigen December 18, 2013 9:04am 1.61 UG/L N 0-3.0 Chloride Level December 18, 2013 9:04am 104 MEQ/L N 98-107 Cholesterol Level January 05, 2014 7:26am 182 MG/DL N 132-199 Cholesterol/HDL Ratio January 05, 2014 7:26am 3.0 RATIO N 0-5.0 Creatinine December 18, 2013 9:04am 1.0 MG/DL N 0.8-1.5 Eosinophils # (Auto) December 18, 2013 9:04am 0.2 T/MM3 N 0-0.5 Eosinophils (%) (Auto) December 18, 2013 9:04am 3.8 % N 0-4 Globulin December 18, 2013 9:04am 2.7 G/DL N 2.4-3.6 Glucose Level December 18, 2013 9:04am 106 MG/DL N 75-110 Hematocrit December 18, 2013 9:04am 44.8 % N 41-53 Hemoglobin December 18, 2013 9:04am 15.2 GM/DL N 13.5-17.5 LDL Cholesterol, Calculated January 05, 2014 7:26am 97.2 N 66-159 Lactate Dehydrogenase December 18, 2013 9:04am 422 U/L N 313-618 Lymphocytes # (Auto) December 18, 2013 9:04am 1.0 T/MM3 N 1-4.8 Lymphocytes # (Manual) November 22, 2013 4:30am 1.4 T/MM3 N 1-4.8 Lymphocytes % (Manual) November 22, 2013 4:30am 11.0 % L 23-45 Lymphocytes (%) (Auto) December 18, 2013 9:04am 19.1 % L 23-45 Mean Corpuscular Hemoglobin December 18, 2013 9:04am 29.9 UUG N 26-34 Mean Corpuscular Hemoglobin Concent December 18, 2013 9:04am 33.9 GM/DL N 31 -37 Mean Corpuscular Volume December 18, 2013 9:04am 88.2 UM3 N 80-100 Mean Platelet Volume December 18, 2013 9:04am 8.7 UM3 L 9.4-12.4 Monocytes # (Auto) December 18, 2013 9:04am 0.5 T/MM3 N 0-0.8 Monocytes # (Manual) November 22, 2013 4:30am 0.4 T/MM3 N 0-0.8 Monocytes % (Manual) November 22, 2013 4:30am 3.0 % N 0-9.0 Monocytes (%) (Auto) December 18, 2013 9:04am 9.6 % H 0-9.0 Neutrophils # (Auto) December 18, 2013 9:04am 3.5 T/MM3 N 1.8-7.7 Neutrophils # (Manual) November 22, 2013 4:30am 9.2 T/MM3 H 1.8-7.7 Neutrophils % (Manual) November 22, 2013 4:30am 75.0 % H 33-66 Neutrophils (%) (Auto) December 18, 2013 9:04am 66.3 % H 33-66 Platelet Count December 18, 2013 9:04am 267 T/MM3 N 130-400 Potassium Level December 18, 2013 9:04am 4.1 MEQ/L N 3.6-5 RDW Standard Deviation December 18, 2013 9:04am 43.4 FL N 36.9-50.2 Red Blood Count December 18, 2013 9:04am 5.08 M/MM3 N 4.50-5.90 Sodium Level December 18, 2013 9:04am 143 MEQ/L N 134-144 Total Bilirubin December 18, 2013 9:04am 0.90 MG/DL N 0.20-1.30 Total Protein December 18, 2013 9:04am 6.5 G/DL N 6.3-8.2 Triglycerides Level January 05, 2014 7:26am 124 MG/DL N 40-160 VLDL Cholesterol January 05, 2014 7:26am 24.8 MG/DL N 0-28 White Blood Count December 18, 2013 9:04am 5.2 T/MM3 N 4.5-11.0 Chemistry Specimen Hemolysis December 18, 2013 9:04am < 15 0-25 0-25: No Hemolysis.26-70: Slight [...] can falsely decrease Phenytoin. Recommend specimen recollection. Lab Scanned Report January 05, 2014 9:58am LAB TEST FORM REQUEST [id number] - HDL Cholesterol Direct January 05, 2014 7:26am 60 MG/DL N 40-60 Turbidity December 18, 2013 9:04am < 20 0-20 Glomerular Filtration Rate Calc December 18, 2013 9:04am 79 - Immature Granulocyte # (Auto) December 18, 2013 9:04am 0.02 T/MM3 N 0.00- 0.03 Immature Granulocyte % (Auto) December 18, 2013 9:04am 0.4 % N 0.0-0.5 Icterus Index December 18, 2013 9:04am < 2 0-7 Name: RUDDY NICHOLAS Unit #: [id number] : 1965 Sex: M Loc / Svc: MED DOS: Signed Report #: [id number] DIAGNOSTIC IMAGING REPORT TYPE OF EXAM: US ARTERIAL EXTREMITY UPPER LT Dictated By: SILVINA DE LA PAZ MD INDICATION: ITS.REASON: Left arm numbness post-op US ARTERIAL EXTREMITY UPPER LT: Comparison: None Findings: Grayscale and color Doppler duplex interrogation of the left upper extremity arterial system reveals normal waveforms and velocities in the common carotid, subclavian , axillary, brachial , radial, and ulnar arteries. No evidence of arterial occlusion or hemodynamically significant stenosis. Of note some of the images are mislabeled as the right upper extremity. Impression: No evidence of hemodynamically significant arterial stenosis or occlusion. . Procedures Procedure Status Date Provider(s) COLONOSCOPY AND BIOPSY completed 11/05/13 MATT DE LA PAZ MD LAPARO PARTIAL COLECTOMY completed 11/21/13 MAUREEN OSORIO MD DIAGNOSTIC SIGMOIDOSCOPY completed 11/21/13 MAUREEN OSORIO MD Shoulder arthroscopy completed 01/21/14 SILVINA MARTÍNEZ MD Encounters Encounter Location Date/Time Registered Clinic [facility] 01/05/14 7:18am Registered Clinic [facility] 12/18/13 9:02am Discharged Inpatient [facility] 11/21/13 8:25am Registered Clinic [facility] 11/14/13 11:34am Registered Clinic [facility] 11/13/13 4:54pm
--- OUTSIDE RECORDS SUMMARY | 2016-09-04 07:24 | XMS REPORT | CCD ---
Author Author MARCIO SMALL Organization Unknown Address [address], [place] [id number] Phone 0 Care Team Providers Care Community Mental Health Worker Name Role Phone DAVID NGO Attending Physician [phone] Vital Signs Unknown or Not Available. Allergies Unknown or Not Available. Procedures Unknown or Not Available. History of Immunizations Unknown or Not Available. Problems Unknown or Not Available. Results Unknown or Not Available. Active Medications Unknown or Not Available. Medications Administered During Visit Unknown or Not Available. Encounters Encounter Diagnosis Diagnosis Code Start Date Encounter for attention to other artificial openings Z438 11/21/2015 Social History Smoking Status Code Start Date End Date Unknown if ever smoked [id number] Patient Decision Aids Unknown or Not Available. Discharge Instructions You were admitted to [facility] on 11/21/2015 09:55 with a principal diagnosis of Encounter for attention to other artificial openings You were discharged from [facility] on 11/21/2015 10:05 Should you have any questions prior to discharge, please contact a member of your healthcare team. If you have left the hospital and have any questions, please contact your primary care physician. Chief Complaint and Reason For Visit Chief Complaint Date of Onset PUMP REMOVAL/PORT FLUSH Function Status Unknown or Not Available. Plan of Care Unknown or Not Available. Referral/Transition of Care Unknown or Not Available.
--- OUTSIDE RECORDS SUMMARY | 2016-09-04 07:24 | XMS REPORT | Continuity of Care Document ---
Author Author [facility] Organization [facility] Address Unknown Phone Unavailable Support Name Relationship Address Phone FRANKLYN HARP MD Caregiver [address] [place] [address] [place] [address] Unavailable MATT DE LA PAZ MD Caregiver [address] [facility] [address] [place] [address] Unavailable JOJO NICHOLAS & JOHNATHAN Next Of Kin [address] [place], [place] [id number] Insurance Providers Guarantor Ruddy Nicholas Address [address] [facility] [place] [address] CP Email DENIED/NO TO PT PORTAL Payer [facility] Policy Number [id number] Subscriber's Name Ruddy Nicholas Relationship 16 Self Group Number [id number] Advance Directives Directive Response Recorded Date/Time Advanced Directives Type None 11/22/13 12:31am Ordered Resuscitation Status Full Code 11/03/13 1:28pm Resuscitation Documents on File No 10/19/15 8:57am DPOA for Healthcare Only No 10/19/15 8:57am Problems Active Problems Medical Problem Onset Date [...] Applicable Not Applicable Hx Substance Use No 09/03/2015 7:28am Not Applicable Not Applicable Hx Alcohol Use Y 2-3X WWEK 09/03/2015 7:28am Not Applicable Not Applicable Has the pt used tobacco in the last 12 months No 09/03/2015 7:28am Not Applicable Not Applicable Query Response Start Date Stop Date Smoking Status Never smoker Hospital Discharge Instructions No hospital discharge instructions. Plan of Care Discharge Date 10/19/15 1:41pm Prescriptions See Medication Section Functional Status Query Response Date Recorded Ability to complete ADL's impeded by No change October 19, 2015 8:57am Allergies, Adverse Reactions, Alerts Allergen Type Severity Reaction Status Last Updated No Known Drug Allergies Allergy Unknown Active 11/03/13 Immunizations Query Response on File Recorded Date/Time Hx Influenza Vaccination Y MAR 2015 09/03/15 7:28am Hx Pneumococcal Vaccination No 09/03/15 7:28am Hx Influenza Vaccination Y MAR 2015 09/03/15 7:28am Influenza Vaccine Hx MAR 2015 08/24/15 7:10am Vital Signs Acute Vital Signs Vital Response Date/Time Temperature (Fahrenheit) 97.0 deg F (96.8 - 99.1) 10/19/2015 12:23pm Temperature (Calculated Celsius) 36.82893 degrees C (36.0 - 37.3) 10/19/2015 12:23pm Temperature Source Temporal 10/19/2015 12:23pm Pulse Rate (adult) 68 bpm (60 - 100) 10/19/2015 1:40pm Respiratory Rate 16 breaths/min (10 - 20) 10/19/2015 1:40pm O2 Sat by Pulse Oximetry 96 % (90 - 100) 10/19/2015 1:40pm Oxygen Delivery Method Room Air 08/24/2015 11:09am Oxygen Delivery Method Room Air 10/19/2015 1:40pm Oxygen Flow Rate 8.00 L/min 10/19/2015 12:23pm Blood Pressure 143/86 mm Hg 10/19/2015 1:40pm Blood Pressure Source Automatic Cuff 10/19/2015 1:40pm Height (Feet) 6 feet 10/19/2015 8:21am Height (Inches) 3.00 inches 10/19/2015 8:21am Weight (Kilograms) 100.800 kg 10/19/2015 8:21am Body Mass Index (BMI) 27.8 10/19/2015 8:21am Results Laboratory Results Test Name Result Units Flags Reference Collection Date/Time Result Date/ Time Comments Prothromb Time International Ratio 1.07 0.81-1.09 08/31/2015 5:49pm 08/31/2015 5:59pm THERAPUTIC RANGE=2.00-3.00 FOR ANTI-THROMBOSIS THERAPUTIC RANGE=2.50-3.50 FOR IMPLANTED VALVE White Blood Count 5.9 T/MM3 4.5-11.0 10/13/2015 11:10/13/2015 11: 17am Red Blood Count 5.24 M/MM3 4.50-5.90 10/13/2015 11:10/13/2015 11: 17am Hemoglobin 15.2 GM/DL 13.5-17.5 10/13/2015 11:10/13/2015 11:17am Hematocrit 45.9 % 41-53 10/13/2015 11:10/13/2015 11:17am Mean Corpuscular Volume 87.6 UM3 80-100 10/13/2015 11:10/13/2015 11:17am Mean Corpuscular Hemoglobin 29.0 UUG 26-34 10/13/2015 11:2015 11:17am Mean Corpuscular Hemoglobin Concent 33.1 GM/DL 31-37 10/13/2015 11:10/13/2015 11:17am RDW Standard Deviation 39.9 FL 36.9-50.2 10/13/2015 11:10/13/2015 11:17am Platelet Count 393 T/MM3 130-400 10/13/2015 11:10/13/2015 11:17am Mean Platelet Volume 8.6 UM3 L 9.4-12.4 10/13/2015 11:10/13/2015 11 :17am Neutrophils (%) (Auto) 62.8 % 33-66 10/13/2015 11:10/13/2015 11: 17am Lymphocytes (%) (Auto) 26.3 % 23-45 10/13/2015 11:10/13/2015 11: 17am Monocytes (%) (Auto) 5.9 % 0-9.0 10/13/2015 11:10/13/2015 11:17am Eosinophils (%) (Auto) 3.7 % 0-4 10/13/2015 11:10/13/2015 11:17am Basophils (%) (Auto) 1.0 % 0-2 10/13/2015 11:10/13/2015 11:17am Immature Granulocyte % (Auto) 0.3 % 0.0-0.5 10/13/2015 11:2015 11:17am Absolute Neutrophils (auto) 3.7 T/MM3 1.8-7.7 10/13/2015 11:2015 11:17am Absolute Lymphocytes (auto) 1.6 T/MM3 1-4.8 10/13/2015 11:2015 11:17am Absolute Monocytes (auto) 0.4 T/MM3 0-0.8 10/13/2015 11:2015 11:17am Absolute Eosinophils (auto) 0.2 T/MM3 0-0.5 10/13/2015 11:2015 11:17am Absolute Basophils (auto) 0.1 T/MM3 0-0.2 10/13/2015 11:2015 11:17am Absolute Immature Granulocyte (auto 0.02 T/MM3 0.00-0.03 10/13/2015 11: 10/13/2015 11:17am Icterus Index < 2 0-7 10/13/2015 11:10/13/2015 11:29am Chemistry Specimen Hemolysis < 15 0-25 10/13/2015 11:10/13/2015 11:29am 0-25: Specimen Exhibited No Hemolysis. Turbidity < 20 0-20 10/13/2015 11:10/13/2015 11:29am Sodium Level 140 MEQ/L 134-144 10/13/2015 11:10/13/2015 11:29am Potassium Level 4.4 MEQ/L 3.6-5 10/13/2015 11:10/13/2015 11:29am Chloride Level 104 MEQ/L 98-107 10/13/2015 11:10/13/2015 11:29am Carbon Dioxide Level 28 MEQ/L 22-30 10/13/2015 11:10/13/2015 11: 29am Anion Gap 8 MEQ/L 5-15 10/13/2015 11:10/13/2015 11:29am Blood Urea Nitrogen 12.0 MG/DL 9-20 10/13/2015 11:10/13/2015 11: 29am Creatinine 1.1 MG/DL 0.8-1.5 10/13/2015 11:10/13/2015 11:29am BUN/Creatinine Ratio 11 RATIO 6-26 10/13/2015 11:10/13/2015 11: 29am Glomerular Filtration Rate Calc 70 10/13/2015 11:10/13/2015 11 :29am Glucose Level 99 MG/DL 75-110 10/13/2015 11:10/13/2015 11:29am Calculated Osmolality 269 MOSM/KG 261-280 10/13/2015 11:2015 11:29am Calcium Level 9.2 MG/DL 8.4-10.2 10/13/2015 11:10/13/2015 11:29am Total Bilirubin 0.50 MG/DL 0.20-1.30 10/13/2015 11:10/13/2015 11: 29am Alkaline Phosphatase 98 U/L 38-126 10/13/2015 11:10/13/2015 11: 29am Total Protein 6.8 G/DL 6.3-8.2 10/13/2015 11:10/13/2015 11:29am Albumin 3.9 G/DL 3.5-5.0 10/13/2015 11:10/13/2015 11:29am Globulin 2.9 G/DL 2.4-3.6 10/13/2015 11:10/13/2015 11:29am Albumin/Globulin Ratio 1.3 RATIO 1.1-2.2 10/13/2015 11:10/13/2015 11:29am Aspartate Amino Transf (AST/SGOT) 49 U/L 17-59 10/13/2015 11:10/12 11:29am Alanine Aminotransferase (ALT/SGPT) 53 U/L 21-72 10/13/2015 11:11am 04/2016 11:29am Lactate Dehydrogenase 504 U/L 313-618 10/13/2015 11:11am 10/13/2015 11: 29am Magnesium Level 2.0 MG/DL 1.6-2.3 10/13/2015 11:11am 10/13/2015 11: 29am Carcinoembryonic Antigen 1.67 UG/L D 0-3.0 10/13/2015 11:11am 10/13/2015 12:04pm Name: RUDDY NICHOLAS Unit #: [id number] : 1965 Sex: M Admit Date: Loc / Svc: NSC Discharge Date: DIAGNOSTIC IMAGING REPORT Report #: [id number] [facility] LEAH Benítez Indication: ITS.REASON: PORT-A-CATH INSERTION PROCEDURE: PORTACATH W FLUORO W 1V CXR: Encounter: Initial Comparison: None FINDINGS: Right internal jugular approach central venous port catheter in place with the tip projecting over the mid to lower SVC. The lungs are clear. There is no abnormal airspace opacity, pleural effusion or pneumothorax identified. The heart size, pulmonary vasculature and mediastinum are within normal limits. No significant skeletal abnormality is seen. IMPRESSION: New right internal jugular port catheter as above. . Procedures Procedure Status Date Provider(s) ROUTINE VENIPUNCTURE Completed 07/29/15 COMPREHEN METABOLIC PANEL Completed 07/29/15 CARCINOEMBRYONIC ANTIGEN Completed 07/29/15 LACTATE (LD) (LDH) ENZYME Completed 07/29/15 COMPLETE CBC W/AUTO DIFF WBC Completed 07/29/15 CT THORAX W/DYE Completed 08/12/15 CT ABD & PELV W/CONTRAST Completed 08/12/15412602"INFUSION, NORMAL SALINE SOLUTION , 250 CC" Completed 08/12/15145998"LOW OSMOLAR CONTRAST MATERIAL, 300-399 MG/ML IODINE C Completed MRI JNT OF LWR EXTRE W/O DYE Completed 08/04/15 PET IMAGE W/CT SKULL-THIGH Completed 08/25/15"FLUORODEOXYGLUCOSE F-18 FDG, DIAGNOSTIC, PER STUDY DO Completed NEEDLE BIOPSY OF LIVER Completed 08/24/15 ECHO GUIDE FOR BIOPSY Completed 08/24/15 AUTOMATED PLATELET COUNT Completed 08/24/15 PROTHROMBIN TIME Completed 08/24/15467099"INJECTION, MIDAZOLAM HYDROCHLORIDE, PER 1 MG" Completed 08/24/15"INJECTION, FENTANYL CITRATE, 0.1 MG" Completed 08/24/15"RINGERS LACTATE INFUSION, UP TO 1000 CC" Completed 08/24/15 KNEE ARTHROSCOPY/SURGERY Completed 09/01/15 SILVINA MARTÍNEZ MD ROUTINE VENIPUNCTURE Completed 09/01/15 ROUTINE VENIPUNCTURE Completed 09/01/15 TRANSFERASE (AST) (SGOT) Completed 09/01/15 ALANINE AMINO (ALT) (SGPT) Completed 09/01/15 COMPLETE CBC W/AUTO DIFF WBC Completed 09/01/15 PROTHROMBIN TIME Completed 09/01/15 [id number] SURGICAL KNEE ARTHROSCOPY IN A DIFFERENT COMPART Completed SILVINA MARTÍNEZ MD [id number]"INJECTION, DEXAMETHASONE SODIUM PHOSPHATE, 1MG" Completed 09/01/15"INJECTION, MEPERIDINE HYDROCHLORIDE, PER 100 MG" Completed 09/01/15"INJECTION, ONDANSETRON HYDROCHLORIDE, PER 1 MG" Completed 09/01/15"INJECTION, METOCLOPRAMIDE HCL, UP TO 10 MG" Completed 09/01/15"INJECTION, FENTANYL CITRATE, 0.1 MG" Completed 09/01/15969884"RINGERS LACTATE INFUSION, UP TO 1000 CC" Completed 09/01/15"RINGERS LACTATE INFUSION, UP TO 1000 CC" Completed 09/01/15 EGD BIOPSY SINGLE/MULTIPLE Completed 09/03/15 FRANKLYN HARP MD PROPOFOL INJ 500 MG/50ML Completed 09/03/15"RINGERS LACTATE INFUSION, UP TO 1000 CC" Completed 09/03/15 ROUTINE VENIPUNCTURE Completed 10/13/15 COMPREHEN METABOLIC PANEL Completed 10/13/15 CARCINOEMBRYONIC ANTIGEN Completed 10/13/15 LACTATE (LD) (LDH) ENZYME Completed 10/13/15 ASSAY OF MAGNESIUM Completed 10/13/15 COMPLETE CBC W/AUTO DIFF WBC Completed 10/13/15 Insertion of vascular catheter Completed 10/19/15 FRANKLYN HARP MD Encounters Encounter Location Arrival/Admit Date [facility]/19/15 1: 41pm FRANKLYN HARP MD Registered [facility] 10/18/15 8:11am DAVID NGO Registered [facility] 10/13/15 10:55am [facility] 7[facility]03[facility] 09/03/15 10 :35am [facility] 7:50am 09/01/15 11 :25am SILVINA MARTÍNEZ MD Registered [facility] 08[facility]25[facility]15 8:35[facility] 08/24/15 11:35am SILVINA DE LA PAZ MD Registered [facility] 08/12/15 8:04am DAVID NGO Registered [facility] 08/04/15 7:19am SILVINA MARTÍNEZ MD Registered [facility] 07/29/15 8:24am DAVID NGO
--- OUTSIDE RECORDS SUMMARY | 2016-09-04 07:24 | XMS REPORT | Continuity of Care Document ---
Author Author [facility] Address Unknown Phone Unavailable Allergies Medications Problems Date Dx Coded Attending Type Code Diagnosis Diagnosed By 08/25/2015 Radha Jaeger Ot 715.31 08/25/2015 Radha Jaeger Ot 719.41 08/25/2015 Radha Jaeger Ot 726.10 08/25/2015 Radha Jaeger Ot 840.3 08/25/2015 Radha Jaeger Ot 840.4 08/25/2015 Radha Jaeger Ot 840.6 Procedures Results Encounters ACCT No. Visit Date/Time Discharge Status Pt. Type Provider Facility Loc./Unit Complaint [id number] 01/13/2014 10:48:00 2013 23:59:59 CLS Outpatient Radha Jaeger [facility]
--- OUTSIDE RECORDS SUMMARY | 2016-09-04 07:24 | XMS REPORT | Continuity of Care Document ---
Author Author [facility] Organization [facility] Address Unknown Phone Unavailable Support Name Relationship Address Phone MATT JO MD Caregiver [address] [place] [address] Unavailable DAVID NGO Caregiver [address] [place] [address] Unavailable JOJO NICHOLAS & JOHNATHAN Next Of Kin [address] [place], [place] [id number] Insurance Providers Guarantor Ruddy Nicholas Address [address] [address] [address] [place] [address] CP Email DENIED/NO TO PT PORTAL Payer [facility] Policy Number [id number] Subscriber's Name Ruddy Nicholas Relationship 18 Self Group Number [id number] Advance Directives Directive Response Recorded Date/Time Advanced [...] tobacco in the last 12 months No 11/26/2015 5:06pm Not Applicable Not Applicable Query Response Start [...] Date/Time Hx Influenza Vaccination Y MAR 2015 11/26/15 5:06pm Hx Pneumococcal Vaccination No 11/26/15 5:06pm Hx Influenza Vaccination Y MAR 2015 11/26/15 5:06pm Influenza Vaccine Hx MAR 2015 08/24/15 7:10am Vital Signs Acute Vital Signs Vital Response Date/Time Temperature (Fahrenheit) 97.4 deg F (96.8 - 99.1) 11/28/2015 1:31pm Temperature (Calculated Celsius) 36.79669 degrees C (36.0 - 37.3) 11/28/2015 1:31pm Temperature Source Temporal 10/19/2015 12:23pm Pulse Rate (adult) 71 bpm (60 - 100) 11/28/2015 1:31pm Respiratory Rate 18 breaths/min (10 - 20) 11/28/2015 1:31pm O2 Sat by Pulse Oximetry 97 % (90 - 100) 11/28/2015 1:31pm Oxygen Delivery Method Room Air 11/28/2015 1:31pm Oxygen Flow Rate 8.00 L/min 10/19/2015 12:23pm Blood Pressure 143/83 mm Hg 11/28/2015 1:31pm Blood Pressure Source Automatic Cuff 11/28/2015 1:31pm Blood Pressure 143/83 mm Hg 11/28/2015 1:31pm Blood Pressure Source Automatic Cuff 11/28/2015 1:31pm Height (Feet) 6 feet 11/26/2015 4:25pm Height (Inches) 3.00 inches 11/26/2015 4:25pm Weight (Kilograms) 101.800 kg 11/26/2015 4:25pm Body Mass Index (BMI) 28.1 11/26/2015 4:25pm Results Laboratory Results Test Name Result Units Flags Reference Collection Date/Time Result Date/ Time Comments White Blood Count 3.7 T/MM3 L 4.5-11.0 12/01/2015 6:14pm 12/01/2015 6: 22pm Red Blood Count 4.89 M/MM3 4.50-5.90 12/01/2015 6:1412/01/2015 6: 22pm Hemoglobin 14.5 GM/DL 13.5-17.5 12/01/2015 6:12/01/2015 6:22pm Hematocrit 42.1 % 41-53 12/01/2015 6:1412/01/2015 6:22pm Mean Corpuscular Volume 86.1 UM3 80-100 12/01/2015 6:12/01/2015 6: 22pm Mean Corpuscular Hemoglobin 29.7 UUG 26-34 12/01/2015 6:142015 6:22pm Mean Corpuscular Hemoglobin Concent 34.4 GM/DL 31-37 12/01/2015 6:12/01/2015 6:22pm RDW Standard Deviation 43.0 FL 36.9-50.2 12/01/2015 6:1412/01/2015 6 :22pm Platelet Count 161 T/MM3 130-400 12/01/2015 6:12/01/2015 6:22pm Mean Platelet Volume 8.7 UM3 L 9.4-12.4 12/01/2015 6:14pm 12/01/2015 6: 22pm Neutrophils (%) (Auto) 27.3 % L 33-66 11/25/2015 5:31pm 11/25/2015 5: 36pm Lymphocytes (%) (Auto) 56.0 % H 23-45 11/25/2015 5:31pm 11/25/2015 5: 36pm Monocytes (%) (Auto) 4.7 % 0-9.0 11/25/2015 5:31pm 11/25/2015 5:36pm Eosinophils (%) (Auto) 10.3 % H 0-4 11/25/2015 5:31pm 11/25/2015 5:36pm Basophils (%) (Auto) 1.7 % 0-2 11/25/2015 5:31pm 11/25/2015 5:36pm Immature Granulocyte % (Auto) 0.0 % 0.0-0.5 11/25/2015 5:31pm 2015 5:36pm Absolute Neutrophils (auto) 0.6 T/MM3 L 1.8-7.7 11/25/2015 5:31pm 2015 5:36pm Absolute Lymphocytes (auto) 1.3 T/MM3 1-4.8 11/25/2015 5:31pm 2015 5:36pm Absolute Monocytes (auto) 0.1 T/MM3 0-0.8 11/25/2015 5:31pm 11/25/2015 5:36pm Absolute Eosinophils (auto) 0.2 T/MM3 0-0.5 11/25/2015 5:31p 2015 5:36pm Absolute Basophils (auto) 0.0 T/MM3 0-0.2 11/25/2015 5:31pm 11/25/2015 5:36pm Absolute Immature Granulocyte (auto 0.00 T/MM3 0.00-0.03 11/25/2015 5: 31p 11/25/2015 5:36pm Neutrophils % (Manual) 24.0 % L 33-66 12/01/2015 6:14pm 12/02/2015 7: 38am --- 12/02/15 0737 --- NEUT%M previously reported as: 14.0 L % Band Neutrophils % 1.0 % D 0-6 12/01/2015 6:14pm 12/02/2015 7:38am --- 12/02/15 0737 --- BAND% previously reported as: 3.0 % Lymphocytes % (Manual) 52.0 % H 23-45 12/01/2015 6:14pm 12/02/2015 7: 38am --- 12/02/15 0737 --- LYMPH%M previously reported as: 67.0 H % Monocytes % (Manual) 19.0 % H 0-9.0 12/01/2015 6:14pm 12/02/2015 7:38am --- 12/02/15 0738 --- MONO%M previously reported as: 6.0 % Eosinophils % (Manual) --- 12/02/15 0738 --- EOS%M previously reported as: 2.0 % % 0-4 12/01/2015 6:1412/02/2015 7:38am Metamyelocytes % --- 12/02/15 0738 --- META% previously reported as: 3.0 H % % 0-0 12/01/2015 6:12/02/2015 7:38am Myelocytes % --- 12/02/15 0738 --- MYELO% previously reported as: 1.0 H % % 0-0 12/01/2015 6:12/02/2015 7:38am Promyelocytes % --- 12/02/1538 --- PROM% previously reported as: 1.0 H % % 0-0 12/01/2015 6:1412/02/2015 7:38am Reactive Lymphocytes % 4.0 % H 0-0 12/01/2015 6:12/02/2015 7:38am --- 12/02/1538 --- LYMPHR% previously reported as: 3.0 H % Band Neutrophils # 0.0 T/MM3 12/01/2015 6:12/02/2015 7:38am -- - 12/02/1537 --- BAND# previously reported as: 0.1 T/MM3 Absolute Neutrophils (Manual) 0.9 T/MM3 L 1.8-7.7 12/01/2015 6:14pm 7:38am --- 12/02/1537 --- NEUT#M previously reported as: 0.5 L T/MM3 Lymphocytes # (Manual) 1.9 T/MM3 1-4.8 12/01/2015 6:1412/02/2015 7: 38am --- 12/02/1538 --- LYMPH#M previously reported as: 2.5 T/MM3 Monocytes # (Manual) 0.7 T/MM3 0-0.8 12/01/2015 6:14pm 12/02/2015 7: 38am --- 12/02/1538 --- MONO#M previously reported as: 0.2 T/MM3 Eosinophils # (Manual) 0.1 T/MM3 0-0.5 12/01/2015 6:14pm 12/01/2015 6: 34pm Metamyelocytes # 0.1 T/MM3 12/01/2015 6:12/01/2015 6:34pm Myelocytes # 0.0 T/MM3 12/01/2015 6:14pm 12/01/2015 6:34pm Promyelocytes # 0.0 T/MM3 12/01/2015 6:1412/01/2015 6:34pm Reactive Lymphocytes # 0.1 T/MM3 H 0-0 12/01/2015 6:14pm 12/01/2015 6: 34pm Nucleated Red Blood Cells 1 12/01/2015 6:pm 12/01/2015 6:34pm Red Cell Morphology Comment ABNORMAL 12/01/2015 6:14pm 12/01/2015 6 :34pm Anisocytosis 1+ 12/01/2015 6:pm 12/01/2015 6:34pm Poikilocytosis 1+ 12/01/2015 6:pm 12/01/2015 6:34pm Icterus Index < 2 0-7 12/01/2015 6:pm 12/01/2015 6:28pm Chemistry Specimen Hemolysis < 15 0-25 12/01/2015 6:12/01/2015 6 :28pm 0-25: Specimen Exhibited No Hemolysis. Turbidity < 20 0-20 12/01/2015 6:pm 12/01/2015 6:28pm Sodium Level 139 MEQ/L 134-144 12/01/2015 6:12/01/2015 6:28pm Potassium Level 4.1 MEQ/L 3.6-5 12/01/2015 6:12/01/2015 6:28pm Chloride Level 103 MEQ/L 98-107 12/01/2015 6:12/01/2015 6:28pm Carbon Dioxide Level 30 MEQ/L 22-30 12/01/2015 6:12/01/2015 6: 28pm Anion Gap 6 MEQ/L 5-15 12/01/2015 6:12/01/2015 6:28pm Blood Urea Nitrogen 12.0 MG/DL 9-12/01/2015 6:12/01/2015 6: 28pm Creatinine 1.0 MG/DL 0.8-1.5 12/01/2015 6:12/01/2015 6:28pm BUN/Creatinine Ratio 12 RATIO 6-12/01/2015 6:12/01/2015 6:28pm Glomerular Filtration Rate Calc 78 12/01/2015 6:12/01/2015 6: 28pm Glucose Level 100 MG/DL 75-110 12/01/2015 6:12/01/2015 6:28pm Calculated Osmolality 268 MOSM/KG 261-280 12/01/2015 6:12/01/2015 6:28pm Calcium Level 9.4 MG/DL 8.4-10.2 12/01/2015 6:12/01/2015 6:28pm Total Bilirubin 0.60 MG/DL 0.20-1.30 12/01/2015 6:12/01/2015 6: 28pm Alkaline Phosphatase 106 U/L 38-126 12/01/2015 6:12/01/2015 6: 28pm Total Protein 6.5 G/DL 6.3-8.2 12/01/2015 6:12/01/2015 6:28pm Albumin 4.2 G/DL 3.5-5.0 12/01/2015 6:12/01/2015 6:28pm Globulin 2.3 G/DL L 2.4-3.6 12/01/2015 6:12/01/2015 6:28pm Albumin/Globulin Ratio 1.8 RATIO 1.1-2.2 12/01/2015 6:12/01/2015 6 :28pm Aspartate Amino Transf (AST/SGOT) 66 U/L H 17-59 12/01/2015 6:11/30 6:28pm Alanine Aminotransferase (ALT/SGPT) 61 U/L 21-72 12/01/2015 6: 6:28pm Lactate Dehydrogenase 802 U/L H 313-618 12/01/2015 6:12/01/2015 6: 28pm Magnesium Level 1.8 MG/DL 1.6-2.3 12/01/2015 6:12/01/2015 6:28pm Carcinoembryonic Antigen 1.78 UG/L 0-3.0 12/01/2015 6:14pm 12/01/2015 6 :58pm Procedures Procedure Status Date Provider(s) EGD BIOPSY SINGLE/MULTIPLE Completed 09/03/15 FRANKLYN HARP MD PROPOFOL INJ 500 MG/50ML Completed 09/03/15 298654"RINGERS LACTATE INFUSION, UP TO 1000 CC" Completed 09/03/15 ROUTINE VENIPUNCTURE Completed 10/13/15 COMPREHEN METABOLIC PANEL Completed 10/13/15 CARCINOEMBRYONIC ANTIGEN Completed 10/13/15 LACTATE (LD) (LDH) ENZYME Completed 10/13/15 ASSAY OF MAGNESIUM Completed 10/13/15 COMPLETE CBC W/AUTO DIFF WBC Completed 10/13/15 CT THORAX W/DYE Completed 10/18/15 CT ABD & PELV W/CONTRAST Completed 10/18/15 974345"INFUSION, NORMAL SALINE SOLUTION , 250 CC" Completed 10/18/15 181624"LOW OSMOLAR CONTRAST MATERIAL, 300-399 MG/ML IODINE C Completed INSERT TUNNELED CV CATH Completed 10/19/15 FRANKLYN HARP MD FLUOROGUIDE FOR VEIN DEVICE Completed 10/19/15 492449"PORT, INDWELLING (IMPLANTABLE)" Completed 10/19/15 829022"INJECTION, CEFAZOLIN SODIUM, 500 MG" Completed 10/19/15 474196"INJECTION, HEPARIN SODIUM, (HEPARIN LOCK FLUSH), PER Completed PROPOFOL INJ 500 MG/50ML Completed 10/19/15 PROPOFOL INJ 500 MG/50ML Completed 10/19/15 737314"INFUSION, NORMAL SALINE SOLUTION , 250 CC" Completed 10/19/15 104545"RINGERS LACTATE INFUSION, UP TO 1000 CC" Completed 10/19/15 897442"INJECTION, BUPIVICAINE HYDROCHLORIDE, 30 ML" Completed 10/19/15 ROUTINE VENIPUNCTURE Completed 10/21/15 COMPREHEN METABOLIC PANEL Completed 10/21/15 CARCINOEMBRYONIC ANTIGEN Completed 10/21/15 LACTATE (LD) (LDH) ENZYME Completed 10/21/15 ASSAY OF MAGNESIUM Completed 10/21/15 COMPLETE CBC W/AUTO DIFF WBC Completed 10/21/15 COMPREHEN METABOLIC PANEL Completed 11/04/15 CARCINOEMBRYONIC ANTIGEN Completed 11/04/15 LACTATE (LD) (LDH) ENZYME Completed 11/04/15 ASSAY OF MAGNESIUM Completed 11/04/15 COMPLETE CBC W/AUTO DIFF WBC Completed 11/04/15 OFFICE/OUTPATIENT VISIT EST Completed 11/07/15 [id number]"INJECTION, HEPARIN SODIUM, (HEPARIN LOCK FLUSH), PER Completed Encounters Encounter Location Arrival/Admit Date Discharge/Depart Date Attending Provider Registered [facility] 12/01/15 6:10pm DAVID NGO Discharged [facility] 11/28/15 3:00pm 12/02/15 5:55pm DAVID NGO Registered [facility] 11/07/15 9:53am DAVID NGO Registered [facility] 11/04/15 6:08pm DAVID NGO Registered [facility] 10/21/15 9:09am DAVID NGO Departed Surgical Day [facility] 10/19/15 8:08am 10/19/15 1: 41pm FRANKLYN HARP MD [facility] 10/18/15 8:11am DAVID NGO [facility] 10/13/15 10:55am DAVID NGO Departed Surgical [facility] 09/03/15 7:03am 09/03/15 10 :35am FRANKLYN HARP MD
--- OUTSIDE RECORDS SUMMARY | 2016-09-04 07:24 | XMS REPORT | Continuity of Care Document ---
Author Author [facility] Organization [facility] Address Unknown Phone Unavailable Support Name Relationship Address Phone MATT JO MD Caregiver [address] [place] [address] Unavailable DAVID NGO Caregiver [address] [place] [address] Unavailable JOJO NICHOLAS & JOHNATHAN Next Of Kin [address] [place], [place] [id number] Insurance Providers Guarantor Ruddy Nicholas Address [address] [facility] [address] [place] [address] CP Email DENIED/NO TO PT PORTAL Payer [facility] Policy Number [id number] Subscriber's Name Ruddy Nicholas Relationship 18 Self Group Number [id number] Advance Directives Directive Response Recorded Date/Time Advanced [...] - 99.1) 11/28/2015 1:31pm Temperature (Calculated Celsius) 36.57470 degrees C (36.0 - 37.3) 11/28/2015 1:31pm [...] MD PROPOFOL INJ 500 MG/50ML Completed 09/03/15 314007"RINGERS LACTATE INFUSION, UP TO 1000 CC" Completed 09/03/15 ROUTINE VENIPUNCTURE Completed 10/13/15 COMPREHEN METABOLIC PANEL Completed 10/13/15 CARCINOEMBRYONIC ANTIGEN Completed 10/13/15 LACTATE (LD) (LDH) ENZYME Completed 10/13/15 ASSAY OF MAGNESIUM Completed 10/13/15 COMPLETE CBC W/AUTO DIFF WBC Completed 10/13/15 CT THORAX W/DYE Completed 10/18/15 CT ABD & PELV W/CONTRAST Completed 10/18/15 [id number]"INFUSION, NORMAL SALINE SOLUTION , 250 CC" Completed 10/18/15 545184"LOW OSMOLAR CONTRAST MATERIAL, 300-399 MG/ML IODINE C Completed INSERT TUNNELED CV CATH Completed 10/19/15 FRANKLYN HARP MD FLUOROGUIDE FOR VEIN DEVICE Completed 10/19/15 165010"PORT, INDWELLING (IMPLANTABLE)" Completed 10/19/15 221458"INJECTION, CEFAZOLIN SODIUM, 500 MG" Completed 10/19/15 055670"INJECTION, HEPARIN SODIUM, (HEPARIN LOCK FLUSH), PER Completed PROPOFOL INJ 500 MG/50ML Completed 10/19/15 PROPOFOL INJ 500 MG/50ML Completed 10/19/15 614067"INFUSION, NORMAL SALINE SOLUTION , 250 CC" Completed 10/19/15 115923"RINGERS LACTATE INFUSION, UP TO 1000 CC" Completed 10/19/15 802882"INJECTION, BUPIVICAINE HYDROCHLORIDE, 30 ML" Completed 10/19/15 ROUTINE [...] Completed 11/04/15 OFFICE/OUTPATIENT VISIT EST Completed 11/07/15 548963"INJECTION, HEPARIN SODIUM, (HEPARIN LOCK FLUSH), PER Completed Encounters Encounter Location Arrival/Admit Date Discharge/Depart Date Attending Provider Registered [facility] 12/01/15 6:10pm DAVID NGO Discharged [facility] 11/28/15 3:00pm 12/02/15 5:55pm DAVID NGO Registered [facility] 11/07/15 9:53am DAVID NGO Registered [facility] 11/04/15 6:08pm DAVID NGO Registered [facility] 10/21/15 9:09am DAVID NGO Departed Surgical Day [facility] 10/19/15 8:08am 10/19/15 1: 41pm FRANKLYN HARP MD [facility] 10/18/15 8:11am DAVID NGO [facility] 10/13/15 10:55am DAVID NGO Departed Surgical [facility] 09/03/15 7:03am 09/03/15 10 :35am FRANKLYN HARP MD
--- OUTSIDE RECORDS SUMMARY | 2016-09-04 07:24 | XMS REPORT | Continuity of Care Document ---
Author Author [facility] Organization [facility] Address Unknown Phone Unavailable Support Name Relationship Address Phone DANA NICOLE MD Caregiver [address] [place] [address] Unavailable MATT JO MD Caregiver [address] [facility] [address] [place] [address] Unavailable JOJO NICHOLAS & JOHNATHAN Next Of Kin [address] [place], [place] [id number] Insurance Providers Guarantor Ruddy Nicholas Address [address] [facility] [address] [address] [place] [address] CP Email DENIED/NO TO PT PORTAL Payer [facility] Policy Number [id number] Subscriber's Name Ruddy Nicholas Relationship 16 Self Group Number [id number] Advance Directives Directive Response Recorded Date/Time Advanced [...] Vital Signs Vital Response Date/Time Temperature (Fahrenheit) 97.3 deg F (96.8 - 99.1) 12/19/2015 3:50pm Temperature (Calculated Celsius) 36.13538 degrees C (36.0 - 37.3) 12/19/2015 3:50pm Temperature Source Temporal 10/19/2015 12:23pm Pulse Rate (adult) 80 bpm (60 - 100) 12/19/2015 3:50pm Respiratory Rate 16 breaths/min (10 - 20) 12/19/2015 3:50pm O2 Sat by Pulse Oximetry 97 % (90 - 100) 12/19/2015 3:50pm Oxygen Delivery Method Room Air 12/19/2015 3:50pm Oxygen Flow Rate 8.00 L/min 10/19/2015 12:23pm Blood Pressure 131/86 mm Hg 12/19/2015 3:50pm Blood Pressure Source Automatic Cuff 12/19/2015 3:50pm Height (Feet) 6 feet 12/14/2015 4:45pm Height (Inches) 3.00 inches 12/14/2015 4:45pm Weight (Kilograms) 101.800 kg 12/14/2015 4:45pm Body Mass Index (BMI) 28.1 12/14/2015 4:45pm Results Laboratory Results Test Name Result Units Flags Reference Collection Date/Time Result Date/ Time Comments Myelocytes % --- 12/02/15737 --- MYELO% previously reported as: 1.0 H % % 0-0 12/01/2015 6:14pm 12/02/2015 7:38am Promyelocytes % --- 12/02/15737 --- PROM% previously reported as: 1.0 H % % 0-0 12/01/2015 6:14pm 12/02/2015 7:38am Myelocytes # 0.0 T/MM3 12/01/2015 6:1412/01/2015 6:34pm Promyelocytes # 0.0 T/MM3 12/01/2015 6:14pm 12/01/2015 6:34pm Anisocytosis 1+ 12/01/2015 6:14pm 12/01/2015 6:34pm Poikilocytosis 1+ 12/01/2015 6:14pm 12/01/2015 6:34pm Carcinoembryonic Antigen 1.78 UG/L 0-3.0 12/01/2015 6:14pm 12/01/2015 6 :58pm White Blood Count 6.2 T/MM3 4.5-11.0 12/23/2015 4:12/23/2015 4: 19pm Red Blood Count 4.24 M/MM3 L 4.50-5.90 12/23/2015 4:12/23/2015 4: 19pm Hemoglobin 12.5 GM/DL L 13.5-17.5 12/23/2015 4:12/23/2015 4:19pm Hematocrit 37.0 % L 41-53 12/23/2015 4:12/23/2015 4:19pm Mean Corpuscular Volume 87.3 UM3 80-100 12/23/2015 4:12/23/2015 4: 19pm Mean Corpuscular Hemoglobin 29.5 UUG 26-34 12/23/2015 4:2015 4:19pm Mean Corpuscular Hemoglobin Concent 33.8 GM/DL 31-37 12/23/2015 4:12/23/2015 4:19pm RDW Standard Deviation 49.3 FL 36.9-50.2 12/23/2015 4:12/23/2015 4 :19pm Platelet Count 232 T/MM3 130-400 12/23/2015 4:12p12/23/2015 4:19pm Mean Platelet Volume 8.7 UM3 L 9.4-12.4 12/23/2015 4:12p12/23/2015 4: 19pm Neutrophils % (Manual) 36.0 % 33-66 12/23/2015 4:12p12/23/2015 4: 37pm Band Neutrophils % 11.0 % D H 0-6 12/23/2015 4:12p12/23/2015 4:37pm Lymphocytes % (Manual) 42.0 % 23-45 12/23/2015 4:12/23/2015 4: 37pm Monocytes % (Manual) 11.0 % H 0-9.0 12/23/2015 4:12/23/2015 4:37pm Eosinophils % (Manual) 3.0 % 0-4 12/03/2015 8:23am 12/03/2015 8:47am Metamyelocytes % 2.0 % H 0-0 12/16/2015 3:12/16/2015 4:02pm Reactive Lymphocytes % 3.0 % H 0-0 12/03/2015 8:23am 12/03/2015 8:47am Band Neutrophils # 0.7 T/MM3 12/23/2015 4:12p12/23/2015 4:37pm Absolute Neutrophils (Manual) 2.2 T/MM3 1.8-7.7 12/23/2015 4:12pm 12/22 4:37pm Lymphocytes # (Manual) 2.6 T/MM3 1-4.8 12/23/2015 4:12p12/23/2015 4: 37pm Monocytes # (Manual) 0.7 T/MM3 0-0.8 12/23/2015 4:12p12/23/2015 4: 37pm Eosinophils # (Manual) 0.1 T/MM3 0-0.5 12/03/2015 8:23am 12/03/2015 8: 47am Metamyelocytes # 0.3 T/MM3 12/16/2015 3:12p12/16/2015 4:02pm Reactive Lymphocytes # 0.1 T/MM3 H 0-0 12/03/2015 8:23am 12/03/2015 8: 47am Nucleated Red Blood Cells 1 12/03/2015 8:23am 12/03/2015 8:47am Red Cell Morphology Comment NORMAL 12/23/2015 4:12/23/2015 4: 37pm Icterus Index < 2 0-7 12/23/2015 4:12/23/2015 4:28pm Chemistry Specimen Hemolysis < 15 0-25 12/23/2015 4:12/23/2015 4 :28pm 0-25: Specimen Exhibited No Hemolysis. Turbidity < 20 0-20 12/23/2015 4:12/23/2015 4:28pm Sodium Level 143 MEQ/L 134-144 12/23/2015 4:12/23/2015 4:28pm Potassium Level 3.8 MEQ/L 3.6-5 12/23/2015 4:12/23/2015 4:28pm Chloride Level 106 MEQ/L 98-107 12/23/2015 4:12/23/2015 4:28pm Carbon Dioxide Level 28 MEQ/L 22-30 12/23/2015 4:12/23/2015 4: 28pm Anion Gap 9 MEQ/L 5-15 12/23/2015 4:12/23/2015 4:28pm Blood Urea Nitrogen 11.0 MG/DL 9-12/23/2015 4:12/23/2015 4: 28pm Creatinine 0.9 MG/DL 0.8-1.5 12/23/2015 4:12/23/2015 4:28pm BUN/Creatinine Ratio 12 RATIO 6-12/23/2015 4:12/23/2015 4:28pm Glomerular Filtration Rate Calc 89 12/23/2015 4:12/23/2015 4: 28pm Glucose Level 138 MG/DL H 75-110 12/23/2015 4:12/23/2015 4:28pm Calculated Osmolality 276 MOSM/KG 261-280 12/23/2015 4:12/23/2015 4:28pm Calcium Level 8.7 MG/DL 8.4-10.2 12/23/2015 4:12/23/2015 4:28pm Total Bilirubin 0.70 MG/DL 0.20-1.30 12/23/2015 4:12/23/2015 4: 28pm Alkaline Phosphatase 99 U/L 38-126 12/23/2015 4:12pm 12/23/2015 4:28pm Total Protein 6.1 G/DL L 6.3-8.2 12/23/2015 4:12p12/23/2015 4:28pm Albumin 3.6 G/DL 3.5-5.0 12/23/2015 4:12p12/23/2015 4:28pm Globulin 2.5 G/DL 2.4-3.6 12/23/2015 4:12p12/23/2015 4:28pm Albumin/Globulin Ratio 1.4 RATIO 1.1-2.2 12/23/2015 4:12p12/23/2015 4 :28pm Aspartate Amino Transf (AST/SGOT) 158 U/L H 17-59 12/23/2015 4:12p 4:28pm Alanine Aminotransferase (ALT/SGPT) 145 U/L H 21-72 12/23/2015 4:12pm 4:28pm Lactate Dehydrogenase 1101 U/L H 313-618 12/23/2015 4:12p12/23/2015 4: 28pm Magnesium Level 2.0 MG/DL 1.6-2.3 12/23/2015 4:12pm 12/23/2015 4:28pm Neutrophils (%) (Auto) 71.6 % H 33-66 12/13/2015 3:50pm 12/13/2015 4: 01pm Lymphocytes (%) (Auto) 25.7 % 23-45 12/13/2015 3:50pm 12/13/2015 4: 01pm Monocytes (%) (Auto) 1.9 % 0-9.0 12/13/2015 3:50pm 12/13/2015 4:01pm Eosinophils (%) (Auto) 0.0 % 0-4 12/13/2015 3:50pm 12/13/2015 4:01pm Basophils (%) (Auto) 0.4 % 0-2 12/13/2015 3:50pm 12/13/2015 4:01pm Immature Granulocyte % (Auto) 0.4 % 0.0-0.5 12/13/2015 3:50pm 2015 4:01pm Absolute Neutrophils (auto) 1.9 T/MM3 1.8-7.7 12/13/2015 3:50pm 2015 4:01pm Absolute Lymphocytes (auto) 0.7 T/MM3 L 1-4.8 12/13/2015 3:50pm 2015 4:01pm Absolute Monocytes (auto) 0.1 T/MM3 0-0.8 12/13/2015 3:50pm 12/13/2015 4:01pm Absolute Eosinophils (auto) 0.0 T/MM3 0-0.5 12/13/2015 3:50pm 2015 4:01pm Absolute Basophils (auto) 0.0 T/MM3 0-0.2 12/13/2015 3:50pm 12/13/2015 4:01pm Absolute Immature Granulocyte (auto 0.01 T/MM3 0.00-0.03 12/13/2015 3: 50pm 12/13/2015 4:01pm Microbiology Results Procedure Source Organism/Result Collection Date/Time Result Date/Time Result Status Blood Culture Cath/Port/Line/Picc NO GROWTH AFTER 5 DAYS 12/16/2015 4:22pm 12/21/2015 4:27pm Final Blood Culture Peripheral/Iv Start NO GROWTH AFTER 5 DAYS 12/16/2015 4:26pm 12/21/2015 4:27pm Final Name: RUDDY NICHOLAS Unit #: [id number] : [id number] Sex: M Admit Date: Loc / Svc: FRANCISCO Discharge Date: DIAGNOSTIC IMAGING REPORT Report #: [id number] [facility] Indication: ITS.REASON: 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 Findings: Aorta and vena cava: No acute findings. Pancreas: Not well seen due to overlying bowel gas. Gallbladder: Previously removed Common duct: Normal in caliber Right kidney: Patient demonstrates a 4 cm cyst in the upper pole. No additional acute findings. Liver: Patient shows two hyperechoic areas probably due to some sort of previous treatment. Finding seems to correlate with the findings on the CT study. No definitive the metastatic nodule was noted in the liver. Impression: 1. Liver demonstrated hyperechoic area and this most likely relates to previous treatment. No new specific metastatic liver lesion noted. 2. Gallbladder is been previously removed. . Procedures Procedure Status Date Provider(s) ROUTINE VENIPUNCTURE Completed 10/13/15 COMPREHEN METABOLIC PANEL Completed 10/13/15 CARCINOEMBRYONIC ANTIGEN Completed 10/13/15 LACTATE (LD) (LDH) ENZYME Completed 10/13/15 ASSAY OF MAGNESIUM Completed 10/13/15 COMPLETE CBC W/AUTO DIFF WBC Completed 10/13/15 CT THORAX W/DYE Completed 10/18/15 CT ABD & PELV W/CONTRAST Completed 10/18/15 810856"INFUSION, NORMAL SALINE SOLUTION , 250 CC" Completed 10/18/15 792245"LOW OSMOLAR CONTRAST MATERIAL, 300-399 MG/ML IODINE C Completed INSERT TUNNELED CV CATH Completed 10/19/15 FRANKLYN HARP MD FLUOROGUIDE FOR VEIN DEVICE Completed 10/19/15 [id number]"PORT, INDWELLING (IMPLANTABLE)" Completed 10/19/15 057541"INJECTION, CEFAZOLIN SODIUM, 500 MG" Completed 10/19/15 514275"INJECTION, HEPARIN SODIUM, (HEPARIN LOCK FLUSH), PER Completed PROPOFOL INJ 500 MG/50ML Completed 10/19/15 PROPOFOL INJ 500 MG/50ML Completed 10/19/15 275479"INFUSION, NORMAL SALINE SOLUTION , 250 CC" Completed 10/19/15 131469"RINGERS LACTATE INFUSION, UP TO 1000 CC" Completed 10/19/15 096349"INJECTION, BUPIVICAINE HYDROCHLORIDE, 30 ML" Completed 10/19/15 ROUTINE [...] Completed 11/04/15 OFFICE/OUTPATIENT VISIT EST Completed 11/07/15 165856"INJECTION, HEPARIN SODIUM, (HEPARIN LOCK FLUSH), PER Completed ROUTINE VENIPUNCTURE Completed 11/11/15 COMPREHEN METABOLIC PANEL Completed 11/11/15 LACTATE (LD) (LDH) ENZYME Completed 11/11/15 ASSAY OF MAGNESIUM Completed 11/11/15 COMPLETE CBC W/AUTO DIFF WBC Completed 11/11/15 ROUTINE VENIPUNCTURE Completed 11/11/15 COMPREHEN METABOLIC PANEL Completed 11/11/15 CARCINOEMBRYONIC ANTIGEN Completed 11/11/15 LACTATE (LD) (LDH) ENZYME Completed 11/11/15 ASSAY OF MAGNESIUM Completed 11/11/15 COMPLETE CBC W/AUTO DIFF WBC Completed 11/11/15 ROUTINE VENIPUNCTURE Completed 11/11/15 COMPREHEN METABOLIC PANEL Completed 11/11/15 LACTATE (LD) (LDH) ENZYME Completed 11/11/15 ASSAY OF MAGNESIUM Completed 11/11/15 COMPLETE CBC W/AUTO DIFF WBC Completed 11/11/15 ROUTINE VENIPUNCTURE Completed 11/11/15 COMPREHEN METABOLIC PANEL Completed 11/11/15 CARCINOEMBRYONIC ANTIGEN Completed 11/11/15 LACTATE (LD) (LDH) ENZYME Completed 11/11/15 ASSAY OF MAGNESIUM Completed 11/11/15 BL SMEAR W/DIFF WBC COUNT Completed 11/11/15 COMPLETE CBC AUTOMATED Completed 11/11/15 THER/PROPH/DIAG INJ SC/IM Completed 11/26/15 Completed 11/26/15 THER/PROPH/DIAG INJ SC/IM Completed 11/26/15 Completed 11/26/15 Encounters Encounter Location Arrival/Admit Date Discharge/Depart Date Attending Provider Registered [facility] 12/24/15 8:47am DANA NICOLE MD Discharged [facility] 12/23/15 4:06pm 12/24/15 12:54pm DAVID NGO Registered [facility] 12/19/15 12:00pm DAVID NGO Registered [facility] 12/13/15 3:55pm DAVID NGO Discharged [facility] 11/26/15 3:52pm 12/02/15 5:55pm DAVID NGO Discharged Recurring [facility] 11/11/15 6:26pm 12/02/15 7:23pm DAVID NGO Registered [facility] 11/07/15 9:53am DAVID NGO Registered [facility] 11/04/15 6:08pm DAVID NGO [facility] 10/21/15 9:09am DAVID NGO Departed [facility] 10/19/15 8:08am 10/19/15 1: 41pm FRANKLYN HARP MD Registered [facility] 10/18/15 8:11am DAVID NGO [facility] 10/13/15 10:55am DAVID NGO
--- OUTSIDE RECORDS SUMMARY | 2016-09-04 07:24 | XMS REPORT | Continuity of Care Document ---
Author Author [facility] Organization [facility] Address Unknown Phone Unavailable Support Name Relationship Address Phone MATT JO MD Caregiver [address] [place] [address] SILVINA MARTÍNEZ MD Caregiver [facility] [address] [place], [place] [phone] JOJO NICHOLAS & JOHNATHAN Next Of Kin [address] [place] [address] CP Insurance Providers Payer Name Policy Number Subscriber Name Relationship [facility] [id number] Ruddy Nicholas 18 Self Bcks/Two [id number] Ruddy Nicholas 16 Self Advance Directives Directive [...] Aspirin 81 Mg PO DAILY 11/03/13 Active Cholecalciferol (Vitamin D3) 1 Cap PO DAILY 07/14/14 Active Acetaminophen/Diphenhydramine 1 Tab PO BEDTIME 07/20/14 Active Hydrocodone/Acetaminophen 1-2 Tab PO EVERY 4 HOURS PRN PAIN 30 Qty Active Social History Social History Problem Response Recorded Date/Time Chewing Tobacco Status No 11/21/2013 8:57am Hx Substance Use No 07/14/2014 11:05am Hx Alcohol Use Y 2-3X WWEK 07/14/2014 11:05am Has the pt used tobacco in the last 12 months No 07/14/2014 11:05am Query Response Start Date Stop Date Smoking Status Never smoker Hospital Discharge Instructions No hospital discharge instructions. Plan of Care No plan of care. Functional Status Query Response Date Recorded Physical Hygiene Self July 20, 2014 8:42am Disabilities None November 27, 2013 12:05pm Devices Used None July 20, 2014 8:42am Dressing Self July 20, 2014 8:42am Ambulation Self November 27, 2013 12:05pm Diet Self July 20, 2014 8:42am Mental Status Alert November 27, 2013 12:05pm Disabilities None November 27, 2013 12:05pm Devices Used None July 20, 2014 8:42am Physical Hygiene Self July 20, 2014 8:42am Dressing Self July 20, 2014 8:42am Ambulation Self November 27, 2013 12:05pm Diet Self July 20, 2014 8:42am Allergies, Adverse Reactions, Alerts Allergen Type Severity Reaction Status Last Updated No Known Drug Allergies Allergy Unknown Active 11/03/13 Immunizations Name Given Type Hx Influenza Vaccination Y FEB 2014 Historical Hx Pneumococcal Vaccination No Historical Hx Influenza Vaccination Y FEB 2014 Historical Vital Signs Acute Vital Signs Vital Response Date/Time Temperature (Fahrenheit) 97.6 deg F (96.8 - 99.1) Temperature (Calculated Celsius) 36.26625 degrees C (36.0 - 37.3) Temperature Source Temporal Pulse Rate (adult) 66 bpm (60 - 100) Respiratory Rate 15 breaths/min (10 - 20) O2 Sat by Pulse Oximetry 96 % (90 - 100) Oxygen Delivery Method Room Air Blood Pressure 124/81 mm Hg Blood Pressure Source Automatic Cuff Height 6 ft 3 in Weight 219 lb Body Mass Index 27.0 kg/m^2 Results Test Source Date Result Interp. Ref. Range Comments Alanine Aminotransferase (ALT/SGPT) July 02, 2014 1:09pm 34 U/L N 21- 72 Albumin July 02, 2014 1:09pm 4.1 G/DL N 3.5-5.0 Albumin/Globulin Ratio July 02, 2014 1:09pm 1.6 RATIO N 1.1-2.2 Alkaline Phosphatase July 02, 2014 1:09pm 65 U/L N 38-126 Anion Gap July 02, 2014 1:09pm 13 MEQ/L N 5-15 Aspartate Amino Transf (AST/SGOT) July 02, 2014 1:09pm 27 U/L N 17- 59 BUN/Creatinine Ratio July 02, 2014 1:09pm 15 RATIO N 6-26 Band Neutrophils # November 22, 2013 4:30am 1.4 T/MM3 - Band Neutrophils % November 22, 2013 4:30am 11.0 % H 0-6 Basophils # (Auto) July 02, 2014 1:09pm 0.1 T/MM3 N 0-0.2 Basophils (%) (Auto) July 02, 2014 1:09pm 0.9 % N 0-2 Blood Urea Nitrogen July 02, 2014 1:09pm 16.0 MG/DL N 9-20 Calcium Level July 02, 2014 1:09pm 9.2 MG/DL N 8.4-10.2 Calculated Osmolality July 02, 2014 1:09pm 281 MOSM/KG H 261-280 Carbon Dioxide Level July 02, 2014 1:09pm 29 MEQ/L N 22-30 Carcinoembryonic Antigen July 02, 2014 1:09pm 2.20 UG/L DN 0-3.0 Chemistry Specimen Hemolysis July 02, 2014 1:09pm < 15 0-25 0-25: No Hemolysis.26-70: Slight [...] decrease Phenytoin. Recommend specimen recollection. Chloride Level July 02, 2014 1:09pm 103 MEQ/L N 98-107 Cholesterol Level January 05, 2014 7:26am 182 MG/DL N 132-199 Cholesterol/HDL Ratio January 05, 2014 7:26am 3.0 RATIO N 0-5.0 Creatinine July 02, 2014 1:09pm 1.1 MG/DL N 0.8-1.5 Eosinophils # (Auto) July 02, 2014 1:09pm 0.1 T/MM3 N 0-0.5 Eosinophils (%) (Auto) July 02, 2014 1:09pm 1.5 % N 0-4 Globulin July 02, 2014 1:09pm 2.6 G/DL N 2.4-3.6 Glomerular Filtration Rate Calc July 02, 2014 1:09pm 71 - Glucose Level July 02, 2014 1:09pm 116 MG/DL H 75-110 HDL Cholesterol Direct January 05, 2014 7:26am 60 MG/DL N 40-60 Hematocrit July 02, 2014 1:09pm 45.3 % N 41-53 Hemoglobin July 02, 2014 1:09pm 15.6 GM/DL N 13.5-17.5 Icterus Index July 02, 2014 1:09pm < 2 0-7 Immature Granulocyte # (Auto) July 02, 2014 1:09pm 0.01 T/MM3 N 0.00- 0.03 Immature Granulocyte % (Auto) July 02, 2014 1:09pm 0.2 % N 0.0-0.5 LDL Cholesterol, Calculated January 05, 2014 7:26am 97.2 N 66-159 Lab Scanned Report July 02, 2014 10:18pm LAB TEST FORM REQUEST - Lactate Dehydrogenase July 02, 2014 1:09pm 514 U/L N 313-618 Lymphocytes # (Auto) July 02, 2014 1:09pm 1.4 T/MM3 N 1-4.8 Lymphocytes # (Manual) November 22, 2013 4:30am 1.4 T/MM3 N 1-4.8 Lymphocytes % (Manual) November 22, 2013 4:30am 11.0 % L 23-45 Lymphocytes (%) (Auto) July 02, 2014 1:09pm 26.4 % N 23-45 Mean Corpuscular Hemoglobin July 02, 2014 1:09pm 29.9 UUG N 26-34 Mean Corpuscular Hemoglobin Concent July 02, 2014 1:09pm 34.4 GM/DL N 31-37 Mean Corpuscular Volume July 02, 2014 1:09pm 86.9 UM3 N 80-100 Mean Platelet Volume July 02, 2014 1:09pm 8.6 UM3 L 9.4-12.4 Monocytes # (Auto) July 02, 2014 1:09pm 0.3 T/MM3 N 0-0.8 Monocytes # (Manual) November 22, 2013 4:30am 0.4 T/MM3 N 0-0.8 Monocytes % (Manual) November 22, 2013 4:30am 3.0 % N 0-9.0 Monocytes (%) (Auto) July 02, 2014 1:09pm 5.4 % N 0-9.0 Neutrophils # (Auto) July 02, 2014 1:09pm 3.6 T/MM3 N 1.8-7.7 Neutrophils # (Manual) November 22, 2013 4:30am 9.2 T/MM3 H 1.8-7.7 Neutrophils % (Manual) November 22, 2013 4:30am 75.0 % H 33-66 Neutrophils (%) (Auto) July 02, 2014 1:09pm 65.6 % N 33-66 Platelet Count July 02, 2014 1:09pm 270 T/MM3 N 130-400 Potassium Level July 02, 2014 1:09pm 3.9 MEQ/L N 3.6-5 RDW Standard Deviation July 02, 2014 1:09pm 41.1 FL N 36.9-50.2 Red Blood Count July 02, 2014 1:09pm 5.21 M/MM3 N 4.50-5.90 Sodium Level July 02, 2014 1:09pm 145 MEQ/L H 134-144 Total Bilirubin July 02, 2014 1:09pm 0.70 MG/DL N 0.20-1.30 Total Protein July 02, 2014 1:09pm 6.7 G/DL N 6.3-8.2 Triglycerides Level January 05, 2014 7:26am 124 MG/DL N 40-160 Turbidity July 02, 2014 1:09pm < 20 0-20 VLDL Cholesterol January 05, 2014 7:26am 24.8 MG/DL N 0-28 White Blood Count July 02, 2014 1:09pm 5.4 T/MM3 N 4.5-11.0 Procedures Procedure Status Date Provider(s) ROUTINE VENIPUNCTURE completed 07/02/14 COMPREHEN METABOLIC PANEL completed 07/02/14 CARCINOEMBRYONIC ANTIGEN completed 07/02/14 LACTATE (LD) (LDH) ENZYME completed 07/02/14 COMPLETE CBC W/AUTO DIFF WBC completed 07/02/14 MUSC TEST DONE W/N TEST COMP completed 07/08/14 NRV CNDJ TEST 7-8 STUDIES completed 07/08/14 Carpal tunnel release completed 07/20/14 SILVINA MARTÍNEZ MD Encounters Encounter Location Date/Time Registered [facility] 07/08/14 10:36am Registered Clinic [facility] 07/02/14 12:59pm
--- OUTSIDE RECORDS SUMMARY | 2016-09-04 07:24 | XMS REPORT | Continuity of Care Document ---
Author Author [facility] Organization [facility] Address Unknown Phone Unavailable Support Name Relationship Address Phone MATT JO MD Caregiver [address] [place] [address] Unavailable DAVID NGO Caregiver [address] [place] [address] Unavailable JOJO NICHOLAS & JOHNATHAN Next Of Kin [address] [place], [place] [id number] Insurance Providers Guarantor Ruddy Nicholas Address [address] [place] [address] CP Email DENIED 16 Payer [facility] Policy Number [id number] Subscriber's Name Ruddy Nicholas Relationship 18 Self Group Number [id number] Advance Directives Directive Response Recorded Date/Time Advanced [...] - 99.1) 05/30/2016 4:00pm Temperature (Calculated Celsius) 36.56589 degrees C (36.0 - 37.3) 05/30/2016 4:00pm [...] Alanine Aminotransferase (ALT/SGPT) 42 U/L 21-72 06/14/2016 9:06am 04/2017 9:19am Lactate Dehydrogenase 541 U/L 313-618 06/14/2016 9:06am 06/14/2016 9: 19am Magnesium Level 2.2 MG/DL 1.6-2.3 06/14/2016 9:06am 06/14/2016 9:19am Carcinoembryonic Antigen 3.25 UG/L H 0-3.0 06/14/2016 9:06am 06/14/2016 9:50am Procedures Procedure Status Date Provider(s) Ct thorax w/dye Completed 05/02/16 Ct abd & pelv w/contrast Completed 05/02/16 148222"INJECTION, HEPARIN SODIUM, (HEPARIN LOCK FLUSH), PER Completed 667785"INFUSION, NORMAL SALINE SOLUTION , 250 CC" Completed 05/02/16 262604"LOW OSMOLAR CONTRAST MATERIAL, 300-399 MG/ML IODINE C Completed Encounters Encounter Location Arrival/Admit Date Discharge/Depart Date Attending Provider Registered [facility] 06/14/16 7:15am DAVID NGO Registered [facility] 06/14/16 6:57am DAVID NGO Discharged [facility] 06/01/16 5:03pm 06/03/16 11:53pm DAVID NGO Discharged [facility] 05/30/16 5:00pm 06/03/16 11:27pm DAVID NGO Registered [facility] 05/02/16 7:04am DAVID NGO
--- OUTSIDE RECORDS SUMMARY | 2016-09-04 07:24 | XMS REPORT | Continuity of Care Document ---
Author Author [facility] Organization [facility] Address Unknown Phone Unavailable Support Name Relationship Address Phone MATT JO MD Caregiver [address] [place] [address] Unavailable DAVID NGO Caregiver [address] [place] [address] Unavailable JOJO NICHOLAS & JOHNATHAN Next Of Kin [address] [place], [place] [id number] Insurance Providers Guarantor Ruddy Nicholas Address [address] [place] [address] CP Email DENIED/NO TO PT PORTAL Payer [facility] Policy Number [id number] Subscriber's Name Ruddy Nicholas Relationship 16 Self Group Number [id number] Advance Directives Directive Response Recorded Date/Time Advanced [...] Vital Signs Vital Response Date/Time Temperature (Fahrenheit) 98.4 deg F (96.8 - 99.1) 01/23/2016 4:31pm Temperature (Calculated Celsius) 36.40347 degrees C (36.0 - 37.3) 01/23/2016 4:31pm Pulse Rate (adult) 93 bpm (60 - 100) 01/23/2016 4:31pm Respiratory Rate 20 breaths/min (10 - 20) 01/23/2016 4:31pm O2 Sat by Pulse Oximetry 98 % (90 - 100) 01/23/2016 4:31pm Oxygen Delivery Method Room Air 01/23/2016 4:31pm Blood Pressure 148/93 mm Hg 01/23/2016 4:31pm Blood Pressure Source Automatic Cuff 01/23/2016 4:31pm Height (Feet) 6 feet 12/14/2015 4:45pm Height (Inches) 3.00 inches 12/14/2015 4:45pm Weight (Kilograms) 101.800 kg 12/14/2015 4:45pm Body Mass Index (BMI) 28.1 12/14/2015 4:45pm Results Laboratory Results Test Name Result Units Flags Reference Collection Date/Time Result Date/ Time Comments Myelocytes % --- 12/02/15 0738 --- MYELO% previously reported as: 1.0 H % % 0-0 12/01/2015 6:12/02/2015 7:38am Promyelocytes % --- 12/02/15 0738 --- PROM% previously reported as: 1.0 H % % 0-0 12/01/2015 6:12/02/2015 7:38am Myelocytes # 0.0 T/MM3 12/01/2015 6:12/01/2015 6:34pm Promyelocytes # 0.0 T/MM3 12/01/2015 6:12/01/2015 6:34pm Poikilocytosis 1+ 12/01/2015 6:12/01/2015 6:34pm White Blood Count 3.9 T/MM3 L 4.5-11.0 01/27/2016 5:01/27/2016 5: 36pm Red Blood Count 4.27 M/MM3 L 4.50-5.90 01/27/2016 5:01/27/2016 5: 36pm Hemoglobin 13.1 GM/DL L 13.5-17.5 01/27/2016 5:01/27/2016 5:36pm Hematocrit 38.7 % L 41-53 01/27/2016 5:01/27/2016 5:36pm Mean Corpuscular Volume 90.6 UM3 80-100 01/27/2016 5:01/27/2016 5: 36pm Mean Corpuscular Hemoglobin 30.7 UUG 26-34 01/27/2016 5:2015 5:36pm Mean Corpuscular Hemoglobin Concent 33.9 GM/DL 31-37 01/27/2016 5:01/27/2016 5:36pm RDW Standard Deviation 55.2 FL H 36.9-50.2 01/27/2016 5:01/27/2016 5:36pm Platelet Count 202 T/MM3 130-400 01/27/2016 5:01/27/2016 5:36pm Mean Platelet Volume 8.8 UM3 L 9.4-12.4 01/27/2016 5:01/27/2016 5: 36pm Neutrophils (%) (Auto) 36.6 % 33-66 01/27/2016 5:01/27/2016 5: 36pm Lymphocytes (%) (Auto) 43.6 % 23-45 01/27/2016 5:pm 01/27/2016 5: 36pm Monocytes (%) (Auto) 14.9 % H 0-9.0 01/27/2016 5:pm 01/27/2016 5:36pm Eosinophils (%) (Auto) 2.6 % 0-4 01/27/2016 5:pm 01/27/2016 5:36pm Basophils (%) (Auto) 0.5 % 0-2 01/27/2016 5:pm 01/27/2016 5:36pm Immature Granulocyte % (Auto) 1.8 % H 0.0-0.5 01/27/2016 5:2015 5:36pm Absolute Neutrophils (auto) 1.4 T/MM3 L 1.8-7.7 01/27/2016 5:pm 2015 5:36pm Absolute Lymphocytes (auto) 1.7 T/MM3 1-4.8 01/27/2016 5:pm 2015 5:36pm Absolute Monocytes (auto) 0.6 T/MM3 0-0.8 01/27/2016 5:pm 01/27/2016 5:36pm Absolute Eosinophils (auto) 0.1 T/MM3 0-0.5 01/27/2016 5:pm 2015 5:36pm Absolute Basophils (auto) 0.0 T/MM3 0-0.2 01/27/2016 5:pm 01/27/2016 5:36pm Absolute Immature Granulocyte (auto 0.07 T/MM3 H 0.00-0.03 01/27/2016 5: 28pm 01/27/2016 5:36pm Neutrophils % (Manual) 95.0 % H 33-66 01/20/2016 3:pm 01/20/2016 3: 50pm Band Neutrophils % 1.0 % 0-6 01/20/2016 3:pm 01/20/2016 3:50pm Lymphocytes % (Manual) 4.0 % L 23-45 01/20/2016 3:29pm 01/20/2016 3: 50pm Monocytes % (Manual) 6.0 % 0-9.0 01/12/2016 5:07pm 01/12/2016 5:47pm Reactive Lymphocytes % 1.0 % H 0-0 01/12/2016 5:07pm 01/12/2016 5:47pm Band Neutrophils # 0.3 T/MM3 01/20/2016 3:29pm 01/20/2016 3:50pm Absolute Neutrophils (Manual) 28.3 T/MM3 H 1.8-7.7 01/20/2016 3:29pm 3:50pm Lymphocytes # (Manual) 1.2 T/MM3 1-4.8 01/20/2016 3:29pm 01/20/2016 3: 50pm Monocytes # (Manual) 0.3 T/MM3 0-0.8 01/12/2016 5:07pm 01/12/2016 5: 47pm Reactive Lymphocytes # 0.0 T/MM3 0-0 01/12/2016 5:07pm 01/12/2016 5: 47pm Nucleated Red Blood Cells 1 01/12/2016 5:07pm 01/12/2016 5:47pm Red Cell Morphology Comment ABNORMAL 01/20/2016 3:pm 01/20/2016 3 :50pm Anisocytosis 2+ 01/20/2016 3:pm 01/20/2016 3:50pm Icterus Index < 2 0-7 01/27/2016 5:28pm 01/27/2016 5:50pm Chemistry Specimen Hemolysis < 15 0-25 01/27/2016 5:28pm 01/27/2016 5 :50pm 0-25: Specimen Exhibited No Hemolysis. Turbidity < 20 0-20 01/27/2016 5:28pm 01/27/2016 5:50pm Sodium Level 144 MEQ/L 134-144 01/27/2016 5:28pm 01/27/2016 5:50pm Potassium Level 4.2 MEQ/L 3.6-5 01/27/2016 5:28pm 01/27/2016 5:50pm Chloride Level 107 MEQ/L 98-107 01/27/2016 5:28pm 01/27/2016 5:50pm Carbon Dioxide Level 30 MEQ/L 22-30 01/27/2016 5:28pm 01/27/2016 5: 50pm Anion Gap 7 MEQ/L 5-15 01/27/2016 5:28pm 01/27/2016 5:50pm Blood Urea Nitrogen 14.0 MG/DL 9-01/27/2016 5:01/27/2016 5: 50pm Creatinine 0.9 MG/DL 0.8-1.5 01/27/2016 5:pm 01/27/2016 5:50pm BUN/Creatinine Ratio 16 RATIO 6-26 01/27/2016 5:01/27/2016 5:50pm Glomerular Filtration Rate Calc 88 01/27/2016 5:01/27/2016 5: 50pm Glucose Level 101 MG/DL 75-110 01/27/2016 5:01/27/2016 5:50pm Calculated Osmolality 278 MOSM/KG 261-280 01/27/2016 5:01/27/2016 5:50pm Calcium Level 9.1 MG/DL 8.4-10.2 01/27/2016 5:pm 01/27/2016 5:50pm Total Bilirubin 0.50 MG/DL 0.20-1.30 01/27/2016 5:01/27/2016 5: 50pm Unconjugated Bilirubin 0.40 MG/DL 0.00-1.10 12/27/2015 4:02pm 2015 4:16pm Conjugated Bilirubin 0.00 MG/DL 0.00-0.30 12/27/2015 4:02pm 12/27/2015 4:16pm Alkaline Phosphatase 109 U/L 38-126 01/27/2016 5:01/27/2016 5: 50pm Total Protein 6.5 G/DL 6.3-8.2 01/27/2016 5:01/27/2016 5:50pm Albumin 3.9 G/DL 3.5-5.0 01/27/2016 5:01/27/2016 5:50pm Globulin 2.6 G/DL 2.4-3.6 01/27/2016 5:01/27/2016 5:50pm Albumin/Globulin Ratio 1.5 RATIO 1.1-2.2 01/27/2016 5:01/27/2016 5 :50pm Aspartate Amino Transf (AST/SGOT) 63 U/L H 17-59 01/27/2016 5:01/26 5:50pm Alanine Aminotransferase (ALT/SGPT) 72 U/L 21-72 01/27/2016 5: 5:50pm Lactate Dehydrogenase 641 U/L H 313-618 01/27/2016 5:28pm 01/27/2016 5: 50pm Magnesium Level 1.8 MG/DL 1.6-2.3 01/27/2016 5:28pm 01/27/2016 5:50pm Carcinoembryonic Antigen 2.31 UG/L 0-3.0 01/27/2016 5:28pm 01/27/2016 6 :20pm Eosinophils % (Manual) 3.0 % 0-4 12/03/2015 8:23am 12/03/2015 8:47am Metamyelocytes % 2.0 % H 0-0 12/16/2015 3:12pm 12/16/2015 4:02pm Eosinophils # (Manual) 0.1 T/MM3 0-0.5 12/03/2015 8:23am 12/03/2015 8: 47am Metamyelocytes # 0.3 T/MM3 12/16/2015 3:12pm 12/16/2015 4:02pm Microbiology Results Procedure Source Organism/Result Collection Date/Time Result Date/Time Result Status Blood Culture Cath/Port/Line/Picc NO GROWTH AFTER 5 DAYS 12/16/2015 4:22pm 12/21/2015 4:27pm Final Blood Culture Peripheral/Iv Start NO GROWTH AFTER 5 DAYS 12/16/2015 4:26pm 12/21/2015 4:27pm Final Procedures Procedure Status Date Provider(s) COMPREHEN METABOLIC PANEL Completed 11/04/15 CARCINOEMBRYONIC ANTIGEN Completed 11/04/15 LACTATE (LD) (LDH) ENZYME Completed 11/04/15 ASSAY OF MAGNESIUM Completed 11/04/15 COMPLETE CBC W/AUTO DIFF WBC Completed 11/04/15 OFFICE/OUTPATIENT VISIT EST Completed 11/07/15 284785"INJECTION, HEPARIN SODIUM, (HEPARIN LOCK FLUSH), PER Completed [...] THER/PROPH/DIAG INJ SC/IM Completed 11/26/15 Completed 11/26/15 COMPREHEN METABOLIC PANEL Completed 12/03/15 LACTATE (LD) (LDH) ENZYME Completed 12/03/15 ASSAY OF MAGNESIUM Completed 12/03/15 BL SMEAR W/DIFF WBC COUNT Completed 12/03/15 COMPLETE CBC AUTOMATED Completed 12/03/15 ROUTINE VENIPUNCTURE Completed 12/03/15 COMPREHEN METABOLIC PANEL Completed 12/03/15 LACTATE (LD) (LDH) ENZYME Completed 12/03/15 ASSAY OF MAGNESIUM Completed 12/03/15 COMPLETE CBC W/AUTO DIFF WBC Completed 12/03/15 ROUTINE VENIPUNCTURE Completed 12/03/15 COMPREHEN METABOLIC PANEL Completed 12/03/15 LACTATE (LD) (LDH) ENZYME Completed 12/03/15 ASSAY OF MAGNESIUM Completed 12/03/15 BL SMEAR W/DIFF WBC COUNT Completed 12/03/15 COMPLETE CBC AUTOMATED Completed 12/03/15 BLOOD CULTURE FOR BACTERIA Completed 12/03/15 BLOOD CULTURE FOR BACTERIA Completed 12/03/15 [id number]"INJECTION, HEPARIN SODIUM, (HEPARIN LOCK FLUSH), PER Completed ROUTINE VENIPUNCTURE Completed 12/03/15 COMPREHEN METABOLIC PANEL Completed 12/03/15 LACTATE (LD) (LDH) ENZYME Completed 12/03/15 ASSAY OF MAGNESIUM Completed 12/03/15 BL SMEAR W/DIFF WBC COUNT Completed 12/03/15 COMPLETE CBC AUTOMATED Completed 12/03/15 ECHO EXAM OF ABDOMEN Completed 12/24/15 Encounters Encounter Location Arrival/Admit Date Discharge/Depart Date Attending Provider Registered [facility] 01/27/16 5:20pm DAVID NGO Registered [facility] 01/23/16 10:00am DAVID NGO Registered [facility] 12/24/15 8:47am DANA NICOLE MD Discharged [facility] 12/13/15 3:55pm 01/27/16 11:59pm DAVID NGO Discharged [facility] 12/03/15 8:26am 12/24/15 12:54pm DAVID NGO Discharged [facility] 11/26/15 3:52pm 12/02/15 5:55pm DAVID NGO Discharged [facility] 11/11/15 6:26pm 12/02/15 7:23pm DAVID NGO Registered [facility] 11/07/15 9:53am DAVID NGO Registered [facility] 11/04/15 6:08pm DAVID NGO
--- OUTSIDE RECORDS SUMMARY | 2016-09-04 07:24 | XMS REPORT | Continuity of Care Document ---
Author Author [facility] Organization [facility] Address Unknown Phone Unavailable Support Name Relationship Address Phone MATT JO MD Caregiver [address] [place] [address] Unavailable DAVID NGO Caregiver [address] [place] [address] Unavailable JOJO NICHOLAS & JOHNATHAN Next Of Kin [address] [place], [place] [phone] Insurance Providers Guarantor Ruddy Nicholas Address [address] [facility] [place] [address] CP Email DENIED/NO TO PT PORTAL Payer [employer] Policy Number [id number] Subscriber's Name Ruddy Nicholas Relationship 16 Self Group Number [id number] Advance Directives Directive Response Recorded Date/Time Advanced [...] - 99.1) 05/30/2016 4:00pm Temperature (Calculated Celsius) 36.44522 degrees C (36.0 - 37.3) 05/30/2016 4:00pm [...] 05/18/2016 6:23pm Name: RUDDY NICHOLAS Unit #: [id number] : [id number] Sex: M Admit Date: Loc / Svc: FRANCISCO Discharge Date: DIAGNOSTIC IMAGING REPORT Report #: [id number] [facility] LEAH Benítez Indication: ITS.REASON: C18.7 COLON [...] CT ABD & PELV W/CONTRAST Completed 05/02/16 [id number]"INJECTION, HEPARIN SODIUM, (HEPARIN LOCK FLUSH), PER Completed [id number]"INFUSION, NORMAL SALINE SOLUTION , 250 CC" Completed 05/02/16 223286"LOW OSMOLAR CONTRAST MATERIAL, 300-399 MG/ML IODINE C Completed Encounters Encounter Location Arrival/Admit Date Discharge/Depart Date Attending Provider Discharged [facility] 06/01/16 5:03pm 06/03/16 11:53pm DAVID NGO Discharged [facility] 05/30/16 5:00pm 06/03/16 11:27pm DAVID NGO Registered [facility] 05/02/16 7:04am DAVID NGO [facility] 03/10/16 6:13am DAVID NGO
[2016-09-04 07:40] VITALS: Ht 190.5 cm; Wt 96.7 kg
[2016-09-04] MEDS: FLEET PHOSPHO-SODA 133 ML ENEMA RECTALLY PRN ×2 (07:41→07:58)
[2016-09-04 07:48] VITALS: BP 134/88; PULSE 71; RESP 16; TEMP 97.9; O2SAT 96
[2016-09-04] MEDS ORDERED: PROPOFOL 500mg 50 ML IV ONE (08:39)
--- NOTE | 2016-09-04 09:09 | ANESPREOP ---
Anesthesia Record Date and Time DATE: 09/04/16 TIME: 08:35 Proposed Surgical Procedure COLONOSCOPY Allergies: Coded Allergies: No Known Drug Allergies (Verified Allergy, Unknown, 09/04/16) Ht/Wt/BMI Height: 6 ' 3.00 " Weight: 96.700 kg BMI: 26.7 kg/m2 Vital Signs Date Time Temp Pulse Resp B/P Pulse Ox O2 Delivery O2 Flow Rate FiO2 09/04/16 07:48 97.9 71 16 134/88 96 Room Air Medications Inpatient Medications Current Medications Medications (Trade) Dose Ordered Sig/Kelsy Start Time Stop Time Status Last Admin Dose Admin Lactated Ringer's (Lactated Ringers) 1,000 ml @ 50 mls/hr Q20H 09/04/16 07:00 Sodium Biphosphate/ Sodium Phosphate (Fleet Enema) 1 enema PRN PRN 09/04/16 07:45 09/04/16 07:58 1 ENEMA Aspirin (Aspir 81) 81 Mg Tablet.dr, 81 MG PO DAILY, (Reported) Last Taken: on 08/30/16 Cholecalciferol (Vitamin D3) (Vitamin D3) 2,000 Unit Capsule, 1 CAP PO DAILY, (Reported) Last Taken: on 09/03/16 0800 Multivit-Min/FA/Lycopen/Lutein (Centrum Silver Men Tablet) 1 Each Tablet, 1 TAB PO 3XW, (Reported) Last Taken: on 09/01/16 0800 Omeprazole (Omeprazole) 20 Mg Capsule.dr, 20 MG PO ACB, (Reported) Take 1 capsule, by mouth, one time a day (before breakfast). Last Taken: on 09/04/16 0630 Pravastatin Sodium (Pravastatin Sodium) 20 Mg Tablet, 20 MG PO HS, (Reported) Last Taken: on 09/03/16 2130 Currently on Beta Katie: No Medical/Surgical History Anesthesia PMH: Reports: *Hypertension (DURING CHEMO, NO LONGER HAS ISSUES-NO MEDS), Cancer (COLON & LIVER), Pneumonia (HX MANY YEARS AGO), Reflux ( OCCASIONALLY), Denies: *Angina, *Diabetes, *Dyspnea, *[place], Anesthesia Reactions ( NO AIRWAY/INTUBATION PROBLEMS), Arthritis, Asthma, Blood Transfusion Reac, CHF, COPD, CVA/Stroke/TIA, Clotting Problems, Deep Vein Thrombosis, Glaucoma, Hepatitis, Hiatal Hernia, Malignant Hyperthermia, Renal Disease, Seizures, Sleep Apnea, Thyroid Disease, Tuberculosis Smoking Status: Never smoker Use Chewing Tobacco?: No Substance Use Type: does not use Alcohol Intake: none Last Drink: hours (ago) (8) Past Surgical History Orthopedic Surgeries: Yes - LT RCR; LT CTR.,R KNEE SCOPE, BACK SURGERY Abdominal Surgeries: Yes - ROBOT ASSISTED SIGMOID COLON RESECTION,LIVER SURGERY, PIERCE Genitourinary Surgeries: No Cardiac Surgeries: No Endocrine Surgeries: No Reproductive Surgeries: No Neurological Surgeries: Yes - LUMBAR FUSION Ear Surgeries: No Nose Surgeries: No Throat Surgeries: No Other Surgeries: Yes - EGD ,C SCOPE Anesthesia Adverse Reactions: FOUND nausea and vomiting Family Hx of Anesthesia Advers: none Hx of Motion Sickness: No Physical Exam Respiratory: Lungs clear Cardiovascular: FOUND Regular rate, rhythm Airway Assessment Mallampati Score: II TMD: 3 Fingerbreadths Overall Assessment: No Airway Concerns ASA: 3 Plan Anesthesia Plan: TIVA Discussion Discussed risks/options/alternatives of anesthesia and questions answered. Patient consents. Nursing pain assessment noted. Present: Spouse Attestation Statement Prior to the delivery of any anesthetic medication, I examined the patient, developed the plan, obtained the patient's consent and discussed the risk and benefits of the procedure with the patient/guardian. SOY ROTHMAN CRNA Sep 04, 2016 08:55
[2016-09-04 09:11] VITALS: BP 134/88; PULSE 94; RESP 14; TEMP 98; O2SAT 96
--- NOTE | 2016-09-04 09:17 | ANESPO ---
Post-Op Note Date 09/04/16 Time: 09:16 Status Pt Participated in Evaluation: Pt participated in person Vital Signs Date Time Temp Pulse Resp B/P Pulse Ox O2 Delivery O2 Flow Rate FiO2 09/04/16 07:48 97.9 71 16 134/88 96 Room Air Respiratory Function: Airway patent Cardiovascular Function: Regular pulse Mental Status: Alert/oriented Pain Level Intensity: 0 Hydration: IV infusing Complications during Recovery None apparent Follow-Up Instructions Instructions Per Surgeon SOY ROTHMAN CRNA Sep 04, 2016 09:17
[2016-09-04 09:26] VITALS: BP 116/71; PULSE 72; RESP 14; O2SAT 98
[2016-09-04 09:46] VITALS: BP 126/75; PULSE 62; RESP 15; O2SAT 97
--- NOTE | 2016-09-04 11:45 | OPNOTEF ---
[facility] DATE: 09/04/2016 PREOPERATIVE DIAGNOSIS: History of colon cancer. POSTOPERATIVE DIAGNOSIS: History of colon cancer. No abnormalities noted. PROCEDURE: Colonoscopy. SURGEON: Anselmo De La Paz MD PROCEDURE NOTE: The patient was prepped with Colyte the evening prior to the procedure. He was placed in the left lateral position. After a benign digital rectal exam, the colonoscope was inserted and advanced to the cecum with cecal landmarks identified. The cecum, ascending colon, transverse colon and remaining sigmoid showed no significant abnormalities. There was no evidence of polyps, inflammatory changes or diverticular disease. The patient had a well-healed anastomosis in the low sigmoid area. The rectum and anus were clear. The colon was suctioned and the scope removed with the patient tolerating the procedure well. Followup colonoscopy recommended in one year or sooner as clinically indicated. VALENTE
== END 2016-09-04 10:09 | disposition home or self-care (01) ==
LOC: NSC 07:19
DX: Z12.11 Encounter for screening for malignant neoplasm of colon (principal); K63.89 Other specified diseases of intestine; Z85.038 Personal history of other malignant neoplasm of large intestine; Z90.49 Acquired absence of other specified parts of digestive tract; I10 Essential (primary) hypertension; E78.5 Hyperlipidemia, unspecified; Z79.82 Long term (current) use of aspirin; Z79.899 Other long term (current) drug therapy
CPT/HCPCS: 45378; J1642; J2704

== ENCOUNTER → 2016-09-25 | Outpatient (CLI) | payer BC ==
[~2016-09-25] MED LIST changes: -LIDOCAINE 1% (10mg/ml) 2ml SDV INJ ONE; -LR 1,000 ML IV SCH
[2016-09-25 13:38] LABS: BASOPHILS % (AUTO) 0.5 % (0-2); EOSINOPHILS # (AUTO) 0.2 T/MM3 (0-0.5); EOSINOPHILS % (AUTO) 3.5 % (0-4); HGB - HEMOGLOBIN 14.6 GM/DL (13.5-17.5); IMMATURE GRANULOCYTE # (AUTO) 0.01 T/MM3 (0.00-0.03); IMMATURE GRANULOCYTE % (AUTO) 0.2 % (0.0-0.5); LYMPHOCYTES # (AUTO) 1.5 T/MM3 (1-4.8); LYMPHOCYTES % (AUTO) 26.9 % (23-45); MEAN CORPUSCULAR HGB 31.1 UUG (26-34); MEAN CORPUSCULAR HGB CONC(MCHC 34.8 GM/DL (31-37); MEAN CORPUSCULAR VOLUME 89.6 UM3 (80-100); MONOCYTES # (AUTO) 0.3 T/MM3 (0-0.8); MONOCYTES % (AUTO) 5.6 % (0-9.0); NEUTROPHILS #(AUTO)-ABSOLUTE 3.5 T/MM3 (1.8-7.7); NEUTROPHILS % (AUTO) 63.3 % (33-66); RED BLOOD COUNT 4.69 M/MM3 (4.50-5.90); WBC - WHITE BLOOD COUNT 5.5 T/MM3 (4.5-11.0)
[2016-09-25 13:49] LABS: ALBUMIN/GLOBULIN RATIO 1.5 RATIO (1.1-2.2); ALKALINE PHOSPHATASE 82 U/L (38-126); ALT (SGPT) 38 U/L (21-72); ANION GAP 12 MEQ/L (5-15); AST (SGOT) 38 U/L (17-59); BUN/CREATININE RATIO 17 RATIO (6-26); CALCIUM 9.6 MG/DL (8.4-10.2); CHLORIDE 105 MEQ/L (98-107); CO2 - CARBON DIOXIDE 29 MEQ/L (22-30); GLOMERULAR FILTRATION RATE 78; GLUCOSE 114 MG/DL (75-110); LDH 635 U/L (313-618); MAGNESIUM 1.9 MG/DL (1.6-2.3); POTASSIUM 4.6 MEQ/L (3.6-5); SODIUM 146 MEQ/L (134-144); TOTAL PROTEIN 6.6 G/DL (6.3-8.2)
== END ==
LOC: LAB 13:22
PROVIDERS: ATTEND Internal Medicine Hematology & Oncology
DX: C18.7 Malignant neoplasm of sigmoid colon (principal); C78.7 Secondary malignant neoplasm of liver and intrahepatic bile duct; E87.5 Hyperkalemia
CPT/HCPCS: 36415; 80053; 82378; 83615; 83735; 85025